=== PATIENT | male | born 1945 | race Caucasian/White ===

== ENCOUNTER → 2017-05-12 | Outpatient (CLI) | payer BC, OTHER ==
[~2017-05-12] MED LIST: ASPI-808 PO; BUPR150T20 PO; CHOL100045 PO; DOXE50CA3 PO; GABA800T2 PO; HYDR-3812 PO; LISI-552 PO; MELO15TA39 PO; PANT40TA3 PO; PROP20TA5 PO; RT-ALBUTEROL SULF 2.5 MG/3 ML PRE-MIX VIAL IH ONE; SERT100T8 PO
== END ==
LOC: RT 11:53
PROVIDERS: ATTEND Internal Medicine Critical Care Medicine
DX: R91.8 Other nonspecific abnormal finding of lung field (principal); R05 Cough; E66.9 Obesity, unspecified; Z72.0 Tobacco use
CPT/HCPCS: 94060; 94726; 94729

== ENCOUNTER → 2017-05-31 | Outpatient (CLI) | payer BC, MEDICARE ==
[~2017-05-31] MED LIST changes: +ATOR80TA76 PO; +DICY20TA10 PO; +GABA-488 PO; +GADOBUTROL 10 MMOL/10 ML (GADAVIST) VIAL IV ONE; +HYDR-3816 PO; +LISI10TA2 PO; +RT-ALBUINH IH; -RT-ALBUTEROL SULF 2.5 MG/3 ML PRE-MIX VIAL IH ONE
--- NOTE | 2017-05-31 19:49 | Diagnostic Imaging Report ---
PROCEDURE: MR imaging of the brain with and without contrast. TECHNIQUE: Multiplanar, multisequence MR imaging of the brain was performed with and without contrast. INDICATION: Newly diagnosed lung cancer. Headache. 9 mL of Gadavist is administered intravenously. FINDINGS: There is no diffusion restriction to suggest an acute infarct or other diffusion abnormality. There is an area of focus with susceptibility artifact seen measuring 5 mm, noted in the left basal ganglia area with central bright T2 and low T1 signal. This could relate to an old focal hemorrhage. No enhancing component is seen to suggest a metastatic nodule. No mass or edema is seen in the brain. There is no hydrocephalus. No extra-axial fluid collection or mass. The central vascular flow voids appear grossly unremarkable. The internal auditory canals and inner ear structures appear unremarkable. The pituitary gland is normal in size. No hypothalamic or pineal region mass. IMPRESSION: No evidence of metastatic disease. Dictated by: Dictated on workstation # [id number]
== END ==
LOC: RAD 14:45
PROVIDERS: ATTEND Internal Medicine Hematology & Oncology
DX: C34.92 Malignant neoplasm of unspecified part of left bronchus or lung (principal); R51 Headache
CPT/HCPCS: 70553

== ENCOUNTER 2017-06-01 05:38 | Outpatient (CLI) | payer BC ==
[~2017-06-01] VITALS: Ht 177.8 cm; Wt 93.9 kg
[~2017-06-01 05:38] MED LIST changes: -ATOR80TA76 PO; -DICY20TA10 PO; -GABA-488 PO; -GADOBUTROL 10 MMOL/10 ML (GADAVIST) VIAL IV ONE; -HYDR-3816 PO; -LISI10TA2 PO; -RT-ALBUINH IH
[2017-06-01] MEDS ORDERED: ATOR80TA76 PO (12:16)
[2017-06-01] MEDS ORDERED: DICY20TA10 PO (12:16)
[2017-06-01] MEDS ORDERED: GABA-488 PO (12:16)
[2017-06-01] MEDS ORDERED: LISI10TA2 PO (12:16)
[2017-06-01] MEDS ORDERED: RT-ALBUINH IH (12:17)
[2017-06-03] MEDS ORDERED: HYDR-3816 PO (12:06)
--- NOTE | 2017-06-03 15:26 | OPERATIVE REPORT ---
DATE OF SERVICE: 06/01/2017 ATTENDING PRIMARY CARE PHYSICIAN: Prasanth Suárez DO. PREOPERATIVE DIAGNOSIS: Right lung adenocarcinoma. POSTOPERATIVE DIAGNOSIS: Right lung adenocarcinoma. PROCEDURE: Placement of left subclavian Groshong implantable catheter under fluoroscopy. SURGEON: Yayo Reyes MD. UNIT TENDER: Kedar Corea APRN. ANESTHESIA: Monitored anesthesia care. ESTIMATED BLOOD LOSS: Minimal. FINDINGS: Catheter tip at superior vena cava - right atrial junction. DISPOSITION: The patient tolerated the procedure well. INDICATIONS: The patient is a 71-year-old male who we have seen before in the past for reflux esophagitis as well as diverticulosis. Approximately one month ago, on routine x-ray at the [facility] where he follows up, a mass was identified. He was referred to Dr. Messina where a bronchoscopy was performed. Washings were done and found to be adenocarcinoma of the lung. A PET-CT scan was also performed, which did show the right lung mass as well as several lymph nodes in the mediastinum, which were contralateral consistent with stage IV disease. He has been seen by oncology for the recommendation for chemotherapy. DESCRIPTION OF PROCEDURE: The patient was brought to the operating room, laid supine on the table. After adequate IV pain and sedative medications and monitored anesthesia care, the neck and chest were prepped and draped in a standard surgical fashion. 0.5% Marcaine with epinephrine was then used to anesthetize the overlying skin in the left subclavian region. The subclavian vein was then cannulated with drawing of venous blood. The guidewire was then inserted under fluoroscopy. The cannulated needle removed and a skin incision made using a 15 blade. The dilator and sheath were then introduced. The guidewire and the dilator were then removed and the Groshong implantable catheter was placed until the tip of the catheter was at the superior vena cava - right atrial junction. The sheath was then removed. The inner wire within the catheter was then removed and the catheter cut down to length and the port placed onto the catheter. The skin incision was extended laterally and the subcutaneous reservoir created between the subcutaneous fat and the anterior pectoralis fascia. This was done using a blunt dissection as well as electrocautery. The port was then placed into the chest reservoir and sutured to the anterior pectoralis fascia using 3-0 Vicryl interrupted sutures. The subcutaneous tissue was then reapproximated using 3-0 Vicryl interrupted sutures. Skin was closed using 4-0 Monocryl running subcuticular suture. The port was accessed with a non-coring Jaramillo needle and venous blood drawn out and heparinized saline pushed in without any resistance. The skin incision was then covered with Dermabond. The patient tolerated the procedure well. We will get a post-procedure chest x-ray and once placement was confirmed, the port may be accessed and used at any time. Job ID: [id number] DocumentID: [id number] Dictated Date: 06/03/2017 12:02:06 Product Examiner Date: 06/03/2017 15:25:37 Dictated By: YAYO REYES MD MTDD
== END 2017-06-01 12:25 ==
LOC: PREOP 05:38
PROVIDERS: ATTEND Surgery
DX: Z01.818 Encounter for other preprocedural examination (principal); C34.90 Malignant neoplasm of unspecified part of unspecified bronchus or lung

== ENCOUNTER → 2017-06-03 | Day surgery (SDC) | payer BC ==
[~2017-06-03] VITALS: Ht 177.8 cm; Wt 93.9 kg
[~2017-06-03] MED LIST changes: +0.9% SODIUM CHLORIDE PF INJ 20 ML VIAL ONE; +ACETAMINOPHEN 325 MG TABLET/CAPLET (TYLENOL) PO PRN; +ATOR80TA76 PO; +CATHETER FLUSH 10 ML SYR IV PRN; +DICY20TA10 PO; +FAMOTIDINE 20MG/2ML IV (PEPCID) IV ONE; +GABA-488 PO; +HEParin (CENTRAL IV FLUSH) 500 UNIT/5 ML SYR ONE; +HYDR-3816 PO; +HYDROcodone/APAP 5 MG/325 MG (LORTAB) TAB PO ONE; +LACTATED RINGERS 1,000 ML IV PRN; +LIDOCAINE PF 2% 5 ML (XYLOCAINE) VIAL ONE; +LIDOCAINE/EPI 1%-1:200,000 (XYLOCAINE) 10 ML VIAL ONE; +LISI10TA2 PO; +MIDAZOLAM 2 MG/2 ML (VERSED) VIAL ONE; +ONDANSETRON 4 MG/2 ML (SDV) Z0FRAN IVP PRN; +RT-ALBUINH IH; +ceFAZolin 1 GM/NS 50 ML IVPB IV ONE; +ceFAZolin INJECTION 1,000 MG in NS (IVPB) 50 ML IV ONE; +morphine INJ 10 MG/ML 1ML (SYR OR VIAL) IVP PRN; +proPOfol 200 MG/20 ML (DIPRIVAN) VIAL IV ONE
--- OUTSIDE RECORDS SUMMARY | 2017-06-03 08:08 | XMS REPORT | Continuity of Care Document ---
Author Author [employer] Organization [facility] Address Unknown Phone Unavailable Care Team Providers Care Webbing Weaver Name Role Phone [employer] Unavailable Unavailable Problems Medications Allergies, Adverse Reactions, Alerts Immunizations Results Vital Signs Encounters Procedures Plan of Care Social History Assessment and Plan Family History Value Date Source Advance Directives Order Name Results Value Date Source
--- OUTSIDE RECORDS SUMMARY | 2017-06-03 08:08 | XMS REPORT | Encounter Summary ---
Author Author [facility] Organization [facility] Address Unknown Phone Unavailable Care Team Providers Care Rn Complex Care Name Role Phone PCP Unavailable Reason for Visit * Reason Comments Care Coordination Encounter Details Date Type Department Care Team Description 06/02/2017 Telephone [facility] Galileo Russell MD Care Coordination [facility] - OP Exam [address] [address] [place], [place] [phone] [phone] Social History Tobacco Use Types Packs/Day Years Used Date Current Every Day Smoker Cigarettes 1 55 Smokeless Tobacco: Never Used Alcohol Use Drinks/Week oz/Week Comments No Sex Assigned at Date Recorded Not on file as of this encounter Functional Status Functional Status Response Date of Assessment Does the patient have a hearing impairment: Yes 05/25/2017 Does the patient have a visual impairment: Yes 05/25/2017 Does the patient have impaired ambulation: No 05/25/2017 Does the patient have an activity of daily living No 05/25/2017 (ADL) impairment: Does the patient have an instrumental activity of No 05/25/2017 daily living (IADL) impairment: Cognitive Status Response Date of Assessment Does the patient have a cognitive impairment: No 05/25/2017 as of this encounter Miscellaneous Notes * Telephone Encounter - Joann Arias, RN - 06/02/2017 12:51 PM WASH BARREL LEADER Patients called and states that they had a f/u with Dr. Dougherty at [facility] in [facility]. She stated that Dr Dougherty received Dr. Russell's consult note that he sent and Dr. Dougherty agrees with Dr. Russell. Being that it is winter time and they live so far away, they have decided to take treatment Closer to home, but still would like to follow up with Dr. Russell. Informed her that is fine as Dr. Russell stated. She will call and schedule follow up after chemotherapy and radiation has been completed. Will inform Dr. Russell. in this encounter Plan of Treatment Not on fileas of this encounter Visit Diagnoses Not on filein this encounter
--- OUTSIDE RECORDS SUMMARY | 2017-06-03 08:08 | XMS REPORT | Clinical Summary ---
Author Author [facility] Organization [facility] Address Unknown Phone Unavailable Care Team Providers Care Box Packer Name Role Phone PCP Unavailable Source Comments Some departments are not documenting in the electronic medical record. If you do not see the information that you expected, contact Release of Information in the Health Information Management department at [phone] for further assistance in locating additional records.[facility] Allergies Active Allergy Reactions Severity Noted Date Comments Meperidine HYPOTENSION High 05/25/2017 Current Medications Prescription Sig. Disp. Refills Start End Date Status Date atorvastatin (LIPITOR) 80 Take 80 mg by mouth at Active mg tablet bedtime daily. sertraline (ZOLOFT) 100 Take 100 mg by mouth Active mg tablet daily. aspirin 325 mg tablet Take 325 mg by mouth Active daily. Take with food. propranolol (INDERAL) 20 Take 20 mg by mouth Active mg tablet daily. cholecalciferol (VITAMIN Take 1,000 Units by mouth Active D-3) 1,000 units tablet daily. lisinopril (PRINIVIL; Take 10 mg by mouth Active ZESTRIL) 10 [address] daily. pantoprazole [address] Take 40 mg by mouth Active (PROTONIX) 40 mg tablet daily. gabapentin (NEURONTIN) Take 300 mg by mouth at Active 300 mg capsule bedtime daily. dicyclomine (BENTYL) 20 Take 20 mg by mouth twice Active mg tablet daily. albuterol (PROAIR HFA) 90 Inhale 2 puffs by mouth Active mcg/actuation inhaler into the lungs four times daily as needed for Wheezing or Shortness of Breath. Shake well before use. meloxicam (MOBIC) 15 mg Take 15 mg by mouth daily Active tablet as needed for Pain. 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 He reports that he was in seeing a nurse practitioner. Commented that he lost about 40 pounds of weight since the beginning of the year. He is also been prone to some chronic diarrhea for a number of years but he has had evaluations have shown diverticulosis and it sounds like a little bit more than a year ago he had a polyp removed but it is since been repeated and did not show any abnormalities. He is also had CT scan of the abdomen and pelvis done March 11, 2017 at [facility] due to some diarrhea and abdominal pain that showed some renal cysts, diverticuli but no diverticulitis but some possible changes suggesting of an ileus. I will note he had an outside chest x-ray done September 18, 2016 that showed elevation of the left hemidiaphragm which is long-standing but no active infiltrates. He ultimately had a CT scan of the chest April 14, 2017 done locally that showed a 1.8 x 1.4 by 1.0 cm spiculated right upper lobe mass and there was an additional smaller nodule the largest which was 1.2 x 1.0 x 0.6 cm with emphysematous changes but also some mediastinal and right hilar lymph nodes. He went on to have a PET scan May 04 2017 at [facility] which showed the right upper lobe pulmonary nodule with an SUV of 3.5 and another more inferiorly located nodule had an SUV 5. There were multiple hypermetabolic lymph nodes including right paratracheal with an SUV of 9 upper right paraesophageal lymph node infracarinal lymph node with an SUV of 11.5 and a right hilar node with an SUV of 11.4 but no obvious distant disease. He went on to have a bronchoscopy and EBUS done at [facility] May 05 2017 and no endobronchial lesions were noted in station 7 and 4L were sampled and he also had BAL and brushing of the left lower lobe. The pathology returned showing malignant cells from both the level 7 and 4L lymph node which favored adenocarcinoma as the cells were TTF-1 positive but Naprosyn negative. BALs from the left lower lobe were negative. We did discuss that the nodules were in the right upper lobe but we reviewed the scans and I suspect they were to peripheral to get a diagnosis and it may have been a chronic left hemidiaphragm elevation with the left lower lobe appear abnormal. Aside from the weight loss though he does not have any acute pulmonary changes. 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 L ast Assessment & Plan: 1. Diagnosis of non-small cell lung cancer favor adenocarcinoma with biopsy-proven mediastinal adenopathy and again I believe it is contralateral making it in N3 disease - likely stage IIIB. Likewise his nodules are small but there are several in the same lobe which would make it a T3 primary. He does not appear to have any metastatic disease which is favorable and I did advise he should have an MRI of the brain as initial staging. 2. His biggest symptom is weight loss. It is hard for me to imagine that this small volume of tumor is causing that. It is somewhat of a concerning symptom but regardless he will require treatment. 3. Tobacco abuse. Even though he has a diagnosis I have told him that patients with even more advanced disease do have more favorable outcomes with therapy if they are able to stop. He has been able to do before so is going to work on that. 4. He does have long-standing diarrhea of uncertain etiology. It sounds like he has had extensive workups including colonoscopies and imaging has not shown any other disease to account for that. That may have more to do with his weight loss and the true tumor but again it would not change current management. 5. 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 6. From a treatment standpoint given that this is stage III disease specifically likely stage IIIb we would recommend definitive chemoradiotherapy. I have talked to him a little bit about the logistics and side effects and I would typically use a once weekly dose of Taxol carboplatin concurrently. We have discussed the side effects and it would have to be monitored with his neuropathy but I think it would probably not be any greater risk than using a cisplatin based combination. Ultimately we have discussed that often consolidation chemotherapy was administered without a lot of medical evidence. More recently though immunotherapy specifically durvalumab per the Ophelia trial of shown significant improvement in progression free survival. Whether this translates and overall survival remains to be seen but the progression free survival was significant enough to be optimistic and is generally well tolerated therapy. We have discussed those logistics and duration of therapy for a year and possible autoimmune side effects but I would certainly consider that. He and his family have to decide where they want to have their treatment and they do have local opinion scheduled later this week. We have discussed overall prognosis and the fact that patients with stage III disease can have longer term disease-free survival after this type of therapy but historically is not in excess of 20% but clearly we can prolong therapy and delay progression as well. There is also reason to be optimistic based on immunomodulatory data. Asked appropriate questions and I am happy to help coordinate therapy. I did not request molecular testing because I do not know a changes therapy at this stage and if he does develop progression elsewhere we would probably have to obtain more tissue. Encounters Date Type Specialty Care Team Description 06/02/2017 Telephone Oncology Galileo Russell MD Care Coordination 05/28/2017 Ancillary Radiology Outpatient, Radiologist Diagnosis unknown Orders 05/25/2017 Office Visit Oncology Galileo Russell MD 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) 05/25/2017 Documentation Oncology Kassi Sheets 05/24/2017 Ancillary Radiology Outpatient, Radiologist Diagnosis unknown Orders 05/24/2017 Ancillary Radiology Outpatient, Radiologist Diagnosis unknown Orders 05/19/2017 Ancillary Radiology Outpatient, Radiologist Diagnosis unknown Orders 05/19/2017 Documentation Oncology Beverley Doyle 05/19/2017 Telephone Oncology Galileo Russell MD Navigation Assessment 05/05/2017 Hospital Radiology Encounter 05/04/2017 Hospital Radiology Encounter 04/14/2017 Hospital Radiology Encounter 04/14/2017 Hospital Radiology Encounter 03/17/2017 Hospital Radiology Encounter 03/17/2017 Hospital Radiology Encounter 03/11/2017 Hospital Radiology Encounter from Last 3 Months Family History Medical History Relation Name Comments Coronary Artery Disease Father Heart Disease Father High Cholesterol Father Hyperlipidemia Father Hypertension Father Cancer Mother Hypertension Mother Cancer-Colon Sister Stroke Sister Relation Name Status Comments Father Mother Sister Social History Tobacco Use Types Packs/Day Years Used Date Current Every Day Smoker Cigarettes 1 55 Smokeless Tobacco: Never Used Tobacco Cessation: Ready to Quit: No Alcohol Use Drinks/Week oz/Week Comments No Sex Assigned at Date Recorded Not on file Last Filed Vital Signs Vital Sign Reading Time Taken Blood Pressure 163/70 05/25/2017 3:01 PM GRAIN ELEVATOR WORKER Pulse 49 05/25/2017 3:01 PM GRAIN ELEVATOR WORKER Temperature 36.8 C (98.3 F) 05/25/2017 3:01 PM GRAIN ELEVATOR WORKER Respiratory Rate 16 05/25/2017 3:01 PM GRAIN ELEVATOR WORKER Oxygen Saturation 99% 05/25/2017 3:01 PM GRAIN ELEVATOR WORKER Inhaled Oxygen - - Concentration Weight 95.3 kg (210 lb) 05/25/2017 3:01 PM GRAIN ELEVATOR WORKER Height 176.5 cm (5' 9.5") 05/25/2017 3:01 PM GRAIN ELEVATOR WORKER Body Mass Index 30.57 05/25/2017 3:01 PM GRAIN ELEVATOR WORKER Plan of Treatment Health Maintenance Due Date Last Done Comments HEPATITIS C SCREENING 1945 PHYSICAL (COMPREHENSIVE) 1953 EXAM PERTUSSIS VACCINE 1957 TETANUS VACCINE 11/16/1963 COLORECTAL CANCER 1996 SCREENING SHINGLES VACCINE 2006 ABDOMINAL AORTIC ANEURYSM 11/16/2011 SCREENING PREVNAR/PNEUMOVAX (#1) 11/16/2011 INFLUENZA VACCINE 01/26/2017 Results * GENERAL RAD CHEST EXTERNAL IMAGING (05/05/2017) Only the most recent of 2 results within the time period is included. Narrative This order has been auto finalized and does not contain a result. * NM PET/CT EXTERNAL IMAGING (05/04/2017) Narrative This order has been auto finalized and does not contain a result. * US THYROID EXTERNAL IMAGING (04/14/2017 12:15 AM) Narrative This order has been auto finalized and does not contain a result. * CT CHEST EXTERNAL IMAGING (04/14/2017) Narrative This order has been auto finalized and does not contain a result. * US CAROTID EXTERNAL IMAGING (03/17/2017 12:15 AM) Narrative This order has been auto finalized and does not contain a result. * CT ABD/PEL EXTERNAL IMAGING (03/11/2017) Narrative This order has been auto finalized and does not contain a result. from Last 3 Months
--- OUTSIDE RECORDS SUMMARY | 2017-06-03 08:08 | XMS REPORT | Encounter Summary ---
Author Author [facility] Organization [facility] Address Unknown Phone Unavailable Care Team Providers Care Executive Director Of Marketing Name Role Phone PCP Unavailable Encounter Details Date Type Department Care Team Description 05/25/2017 Documentation [facility] Kassi Sheets [facility] Center - OP Exam [address] [id number] Social History Tobacco Use Types Packs/Day Years [...] impairment: No 05/25/2017 as of this encounter Progress Notes * Kassi Sheets - 05/25/2017 4:24 PM BLIND HOOKER DIANE referred by [facility] for support/resources. Pt is 71yo w/ lung cancer here w/ and 2 adult children. Pt lives near [facility] and considering treatment at , wants to know resources for lodging etc. SW discussed [facility] [place] and provided info. w/ insurance questions as well, Pt only signed up for Medicare Part A and is covered on her BCBS plan through her work. They plan to talk to SS about part B, SW encouraged this, Pt may pay penalties for not signing up earlier but may be worth it still if they are concerned about coverage. Discussed talking to [facility] if they do elect treatment here they will do benefits check and give estimate. 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 SW discussed talking to kids about Dx and offered resources. 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 SW offered support. Will cont to follow. in this encounter Plan of Treatment Not on fileas of this encounter Visit Diagnoses Not on filein this encounter
--- OUTSIDE RECORDS SUMMARY | 2017-06-03 08:08 | XMS REPORT | Encounter Summary ---
Author Author [facility] Organization [facility] Address Unknown Phone Unavailable Care Team Providers Care Station Installation Supervisor Name Role Phone PCP Unavailable Encounter Details Date Type Department Care Team Description 05/28/2017 Ancillary Rad Outpatient, Radiologist Diagnosis unknown Orders [address] [place] [address] Social History Tobacco Use Types Packs/Day Years [...] impairment: No 05/25/2017 as of this encounter Plan of Treatment Not on fileas of this encounter Results * US THYROID EXTERNAL IMAGING (04/14/2017 12:15 AM) Narrative This order has been auto finalized and does not contain a result. * US CAROTID EXTERNAL IMAGING (03/17/2017 12:15 AM) Narrative This order has been auto finalized and does not contain a result. in this encounter Visit Diagnoses Diagnosis Diagnosis unknown Other unknown and unspecified cause of morbidity or mortality in this encounter
--- OUTSIDE RECORDS SUMMARY | 2017-06-03 08:09 | XMS REPORT | Encounter Summary ---
Author Author [facility] Organization [facility] Address Unknown Phone Unavailable Care Team Providers Care Pipe Bowl Paint Trimmer Name Role Phone PCP Unavailable Encounter Details Date Type Department Care Team Description 04/14/[address] [facility] Hospital Radiology [address] [place] [address] Social History Tobacco Use Types Packs/Day Years Used Date Never Assessed Sex Assigned at Date Recorded Not on file as of this encounter Plan of Treatment Not on fileas of this encounter Results * US THYROID EXTERNAL IMAGING (04/14/2017 12:15 AM) Narrative This order has been auto finalized and does not contain a result. in this encounter Visit Diagnoses Diagnosis Diagnosis unknown Other unknown and unspecified cause of morbidity or mortality in this encounter
--- OUTSIDE RECORDS SUMMARY | 2017-06-03 08:09 | XMS REPORT | Encounter Summary ---
Author Author [facility] Organization [facility] Address Unknown Phone Unavailable Care Team Providers Care Student Ministries Director Name Role Phone PCP Unavailable Encounter Details Date Type Department Care Team Description 03/17/2017 Hospital [facility] Radiology [address] [place] [address] Social History Tobacco Use Types Packs/Day Years Used Date Never Assessed Sex Assigned at Date Recorded Not on file as of this encounter Plan of Treatment Not on fileas of this encounter Results * GENERAL RAD CHEST EXTERNAL IMAGING (03/17/2017) Narrative This order has been auto finalized and does not contain a result. in this encounter Visit Diagnoses Diagnosis Diagnosis unknown Other unknown and unspecified cause of morbidity or mortality in this encounter
--- OUTSIDE RECORDS SUMMARY | 2017-06-03 08:09 | XMS REPORT | Encounter Summary ---
Author Author [facility] Organization [facility] Address Unknown Phone Unavailable Care Team Providers Care Fiber Optics Engineer Name Role Phone PCP Unavailable Encounter Details Date Type Department Care Team Description 05/19/2017 Ancillary Rad Outpatient, Radiologist Diagnosis unknown Orders [address] [place] [address] Social History Tobacco Use Types Packs/Day Years Used Date Never Assessed Sex Assigned at Date Recorded Not on file as of this encounter Plan of Treatment Not on fileas of this encounter Results * GENERAL RAD CHEST EXTERNAL IMAGING (05/05/2017) Narrative This order has been auto finalized and does not contain a result. * NM PET/CT EXTERNAL IMAGING (05/04/2017) Narrative This order has been auto finalized and does not contain a result. in this encounter Visit Diagnoses Diagnosis Diagnosis unknown Other unknown and unspecified cause of morbidity or mortality in this encounter
--- OUTSIDE RECORDS SUMMARY | 2017-06-03 08:09 | XMS REPORT | Encounter Summary ---
Author Author [facility] Organization [facility] Address Unknown Phone Unavailable Care Team Providers Care Teamcenter Consultant Name Role Phone PCP Unavailable Encounter Details Date Type Department Care Team Description 05/05/[address] [facility] Hospital Radiology [address] [place] [address] Social History Tobacco Use Types Packs/Day Years [...]
--- OUTSIDE RECORDS SUMMARY | 2017-06-03 08:09 | XMS REPORT | Encounter Summary ---
Author Author [facility] Organization [facility] Address Unknown Phone Unavailable Care Team Providers Care Optometric Aide Name Role Phone PCP Unavailable Reason for Visit * Reason Comments Heme/Onc Care * Consult, Test & Treat (Routine) Status Reason Specialty Diagnoses / Referred By Referred To Procedures Contact Contact New Request Oncology Diagnoses Mack Messina, Galileo Russell MD [place] [address] cancer second 1 [place], [place] [address] [address] [address] [place], [place] Phone: [employer] [address] [place] OFFICE Phone: CONSULTATION,LEV [phone] EL V Fax: NEW PATIENT [phone] Encounter Details Date Type Department Care Team Description 05/25/2017 Office Visit [facility] Galileo Russell MD Primary adenocarcinoma of Cancer Center - OP Exam [address] upper lobe of right lung [address] [facility] [place] [address] ([facility]) [place], [place] [phone] Social History Tobacco Use Types Packs/Day Years Used Date Current Every Day Smoker Cigarettes 1 55 Smokeless Tobacco: Never Used Tobacco Cessation: Ready to Quit: No Alcohol Use Drinks/Week oz/Week Comments No Sex Assigned at Date Recorded Not on file as of this encounter Last Filed Vital Signs Vital Sign Reading Time Taken Blood Pressure 163/70 05/25/2017 3:01 PM TOP LIFT CUTTER Pulse 49 05/25/2017 3:01 PM TOP LIFT CUTTER Temperature 36.8 C (98.3 F) 05/25/2017 3:01 PM TOP LIFT CUTTER Respiratory Rate 16 05/25/2017 3:01 PM TOP LIFT CUTTER Oxygen Saturation 99% 05/25/2017 3:01 PM TOP LIFT CUTTER Inhaled Oxygen - - Concentration Weight 95.3 kg (210 lb) 05/25/2017 3:01 PM TOP LIFT CUTTER Height 176.5 cm (5' 9.5") 05/25/2017 3:01 PM TOP LIFT CUTTER Body Mass Index 30.57 05/25/2017 3:01 PM TOP LIFT CUTTER in this encounter Functional Status Functional Status Response [...] as of this encounter Progress Notes * Galileo Russell MD - 05/25/2017 3:00 PM TOP LIFT CUTTER Formatting of this note may be different from the original. Date of Service: 05/25/2017 Subjective: Reason for Visit: Heme/Onc Care Misbah Gregg is a 71 y.o. male. 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) Staging form: Lung, AJCC 7th Edition - Clinical stage from 05/25/2017: Stage IIIB (T3, N3, M0) - Signed by Galileo Russell MD on 05/25/2017 History of Present Illness Problem Primary Adenocarcinoma of Upper Lobe of Right Lung (Hcc) Here for recent diagnosis of non-small cell [...] and pelvis done March 11, 2017 at [facility] due to some diarrhea and abdominal pain [...] a PET scan May 04 2017 at [facility] which showed the right upper lobe pulmonary [...] have a bronchoscopy and EBUS done at [facility] May 05 2017 and no endobronchial lesions [...] did talk about trying to stop again. Review of Systems Constitutional: Positive for activity change, appetite change, diaphoresis ( Nighttime), fatigue and unexpected weight change. Respiratory: Positive for apnea, cough and wheezing. Gastrointestinal: Positive for diarrhea. Genitourinary: Positive for urgency. Musculoskeletal: Positive for back pain and gait problem. Skin: Positive for color change (Legs and feet) and rash (Legs). Hematological: Bruises/bleeds easily. Psychiatric/Behavioral: Positive for decreased concentration and sleep disturbance. All other systems reviewed and are negative. Past Medical History: Diagnosis Date Back pain Bleeding disorder (HCC) COPD (chronic obstructive pulmonary disease) (HCC) Hearing reduced Heart disease Hypertension Peripheral neuropathy (HCC) Stomach disorder Vision decreased Past Surgical History: Procedure Laterality Date COLONOSCOPY CORONARY ARTERY BYPASS GRAFT HX CHOLECYSTECTOMY HX HEART CATHETERIZATION LYMPH NODE BIOPSY Family History Problem Relation Age of Onset Cancer Mother 58 Hypertension Mother Heart Disease Father Hypertension Father High Cholesterol Father Coronary Artery Disease Father Hyperlipidemia Father Cancer-Colon Sister 76 Stroke Sister 76 Social History Social History Marital status: Spouse name: N/A Number of children: N/A Years of education: N/A Social History Main Topics Smoking status: Current Every Day Smoker Packs/day: 1.00 Years: 55.00 Types: Cigarettes Smokeless tobacco: Never Used Alcohol use No Drug use: No Sexual activity: Not Asked Other Topics Concern None Social History Narrative None Allergies Allergen Reactions Demerol [Meperidine] HYPOTENSION Objective: albuterol (PROAIR HFA) 90 mcg/actuation inhaler Inhale 2 puffs by mouth into the lungs four times daily as needed for Wheezing or Shortness of Breath. Shake well before use. aspirin 325 mg tablet Take 325 mg by mouth daily. Take with food. atorvastatin (LIPITOR) 80 mg tablet Take 80 mg by mouth at bedtime daily. cholecalciferol (VITAMIN D-3) 1,000 units tablet Take 1,000 Units by mouth daily. dicyclomine (BENTYL) 20 mg tablet Take 20 mg by mouth twice daily. gabapentin (NEURONTIN) 300 mg capsule Take 300 mg by mouth at bedtime daily. HYDROcodone/acetaminophen (NORCO) 5/325 mg tablet Take 1 tablet by mouth every 4 hours as needed for Pain lisinopril (PRINIVIL; ZESTRIL) 10 mg tablet Take 10 mg by mouth daily. meloxicam (MOBIC) 15 mg tablet Take 15 mg by mouth daily as needed for Pain. pantoprazole DR (PROTONIX) 40 mg tablet Take 40 mg by mouth daily. propranolol (INDERAL) 20 mg tablet Take 20 mg by mouth daily. sertraline (ZOLOFT) 100 mg tablet Take 100 mg by mouth daily. Vitals: 05/25/17 1501 BP: 163/70 Pulse: 49 Resp: 16 Temp: 36.8 C (98.3 F) TempSrc: Oral SpO2: 99% Weight: 95.3 kg (210 lb) Height: 176.5 cm (69.5") Body mass index is 30.57 kg/(m^2). Pain Score: Zero Pain Addressed: N/A Patient Evaluated for a Clinical Trial: No treatment clinical trial available for this patient. Eastern Cooperative Oncology Group performance status is 0, Fully active, able to carry on all pre-disease performance without restriction.. Physical Exam Constitutional: He is oriented to person, place, and time. He appears well- developed and well-nourished. No distress. HENT: Head: Normocephalic and atraumatic. Mouth/Throat: Oropharynx is clear and moist. Eyes: Conjunctivae are normal. No scleral icterus. Neck: Neck supple. No thyromegaly present. Cardiovascular: Normal rate, regular rhythm and normal heart sounds. Pulmonary/Chest: Effort normal and breath sounds normal. No respiratory distress. Abdominal: Soft. Bowel sounds are normal. He exhibits no distension and no mass. There is no tenderness. Musculoskeletal: Normal range of motion. He exhibits no edema. Lymphadenopathy: He has no cervical adenopathy. He has no axillary adenopathy. Right: No supraclavicular adenopathy present. Left: No supraclavicular adenopathy present. Neurological: He is alert and oriented to person, place, and time. He displays normal reflexes. No cranial nerve deficit. He exhibits normal muscle tone. Coordination normal. Skin: Skin is warm and dry. Psychiatric: He has a normal mood and affect. Vitals reviewed. No results found for this or any previous visit (from the past 336 hour(s)). 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 Diagnosis of non-small cell lung cancer favor adenocarcinoma with biopsy- proven mediastinal adenopathy and again I believe it [...] recently though immunotherapy specifically durvalumab per the [place] trial of shown significant improvement in progression [...] would probably have to obtain more tissue. 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 Diagnosis of non-small cell lung cancer favor adenocarcinoma with biopsy- proven mediastinal adenopathy and again I believe it [...] recently though immunotherapy specifically durvalumab per the [place] trial of shown significant improvement in progression [...] would probably have to obtain more tissue. 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
--- OUTSIDE RECORDS SUMMARY | 2017-06-03 08:09 | XMS REPORT | Encounter Summary ---
Author Author [facility] Organization [facility] Address Unknown Phone Unavailable Care Team Providers Care Beam Saw Operator Name Role Phone PCP Unavailable Encounter Details Date Type Department Care Team Description 05/24/2017 Ancillary Rad Outpatient, Radiologist Diagnosis unknown Orders [address] [place] [address] Social History Tobacco Use Types Packs/Day Years Used Date Never Assessed Sex Assigned at Date Recorded Not on file as of this encounter Plan of Treatment Not on fileas of this encounter Results * CT CHEST EXTERNAL IMAGING (04/14/2017) Narrative This order has been auto finalized and does not contain a result. * GENERAL RAD CHEST EXTERNAL IMAGING (03/17/2017) Narrative This order has been auto finalized and does not contain a result. in this encounter Visit Diagnoses Diagnosis Diagnosis unknown Other unknown and unspecified cause of morbidity or mortality in this encounter
--- OUTSIDE RECORDS SUMMARY | 2017-06-03 08:09 | XMS REPORT | Encounter Summary ---
Author Author [facility] Organization [facility] Address Unknown Phone Unavailable Care Team Providers Care Commercial Driver Name Role Phone PCP Unavailable Encounter Details Date Type Department Care Team Description 03/11/2017 Hospital [facility] Radiology [address] [place] [address] Social History Tobacco Use Types Packs/Day Years Used Date Never Assessed Sex Assigned at Date Recorded Not on file as of this encounter Plan of Treatment Not on fileas of this encounter Results * CT ABD/PEL EXTERNAL IMAGING (03/11/2017) Narrative This order has been auto finalized and does not contain a result. in this encounter Visit Diagnoses Diagnosis Diagnosis unknown Other unknown and unspecified cause of morbidity or mortality in this encounter
--- OUTSIDE RECORDS SUMMARY | 2017-06-03 08:09 | XMS REPORT | Encounter Summary ---
Author Author [facility] Organization [facility] Address Unknown Phone Unavailable Care Team Providers Care Concrete Engineering Technician Name Role Phone PCP Unavailable Reason for Visit * Reason Comments Navigation Assessment Encounter Details Date Type Department Care Team Description 05/19/2017 Telephone [facility] Galileo Russell MD Navigation Assessment [facility] - [facility] Exam [address] [place] [address] [place] [address] [phone] Social History Tobacco Use Types Packs/Day Years Used Date Never Assessed Sex Assigned at Date Recorded Not on file as of this encounter Miscellaneous Notes * Telephone Encounter - Lea Bower RN - 05/19/2017 11:20 AM HPLC CHEMIST Navigation Intake Assessment Document Patient Name: Misbah Gregg : 1945 Insurance: [place], [place] Appointment Info: to see Dr Russell on 05/25/17 Diagnosis & Reason for Visit: Lung cancer Physician Info: Referring Physician: Self-referred Contact Name & Number: Surgeon: Medical Oncologist: to see Dr Dougherty in [place], [place] Radiation Oncologist: PCP: Dr Prasanth Suárez, [place], [place] Other: Dr Mack Messina, [facility] Location of Films: PACS, all images and discs requested. Pt has disc from [facility] and will bring it. Location of Pathology: [place], [place] History of Present Illness: Pt had outside workup. 03/11/17 - CT abd pelvis in [place], [place], at [facility] 03/17/17 - CXR 04/14/17 - CT chest at [facility] in [place] 05/04/17 - PET at [facility] in [place], [place] 05/05/17 - EBUS biopsy, LN Path: malignant cells, NSC, favor adeno CA inquired about additional mutation studies - per [facility] pathology, not enough cells for testing. Pt requests opinion at [facility] He has an appt on 05/27/17 to see Med Onc, Dr Dougherty in [place] Prior Treatment (XRT, Surgery, Chemotherapy): None Comments: Spoke to patient's , Areli. They will be driving in from [place], [place] for appt here. Appt guide sent NEEDS Assessment: Genetic Counseling: Not Applicable Nutrition: No needs identified Social Work/Financial: No need identified and Patient provided information on available services Spiritual & Emotional: Emotional support provided Physical: No needs identified Communication: No needs identified Oncofertility - Females age 40 and under; Males age 50 and under : Not applicable in this encounter Plan of Treatment Not on fileas of this encounter Visit Diagnoses Not on filein this encounter
--- OUTSIDE RECORDS SUMMARY | 2017-06-03 08:09 | XMS REPORT | Encounter Summary ---
Author Author [facility] Organization [facility] Address Unknown Phone Unavailable Care Team Providers Care Ditch Digger Name Role Phone PCP Unavailable Encounter Details Date Type Department Care Team Description 05/19/2017 Documentation [facility] Beverley Doyle [facility] Center - WW Exam [address] [place] [address] Social History Tobacco Use Types Packs/Day Years Used Date Never Assessed Sex Assigned at Date Recorded Not on file as of this encounter Progress Notes * Beverley Doyle - 05/19/2017 1:13 PM MAINTENANCE WORKER Disc of images including 04-14-17 CT chest and 03-17-17 [facility] Disc of images delivered to radiology to be loaded into PACS. in this encounter Plan of Treatment Not on fileas of this encounter Visit Diagnoses Not on filein this encounter
--- OUTSIDE RECORDS SUMMARY | 2017-06-03 08:09 | XMS REPORT | Encounter Summary ---
Author Author [facility] Organization [facility] Address Unknown Phone Unavailable Care Team Providers Care Wild Oyster Harvester Name Role Phone PCP Unavailable Encounter Details Date Type Department Care Team Description 05/04/2017 Hospital [facility] Radiology [address] [place] [address] Social History Tobacco Use Types Packs/Day Years Used Date Never Assessed Sex Assigned at Date Recorded Not on file as of this encounter Plan of Treatment Not on fileas of this encounter Results * NM PET/CT EXTERNAL IMAGING (05/04/2017) Narrative This order has been auto finalized and does not contain a result. in this encounter Visit Diagnoses Diagnosis Diagnosis unknown Other unknown and unspecified cause of morbidity or mortality in this encounter
--- OUTSIDE RECORDS SUMMARY | 2017-06-03 08:09 | XMS REPORT | Encounter Summary ---
Author Author [facility] Organization [facility] Address Unknown Phone Unavailable Care Team Providers Care Medical Radiation Tech Name Role Phone PCP Unavailable Encounter Details Date Type Department Care Team Description 04/14/2017 Hospital [facility] Radiology [address] [place] [address] Social History Tobacco Use Types Packs/Day Years [...]
--- OUTSIDE RECORDS SUMMARY | 2017-06-03 08:09 | XMS REPORT | Encounter Summary ---
Author Author [facility] Organization [facility] Address Unknown Phone Unavailable Care Team Providers Care Athletic Director Name Role Phone PCP Unavailable Encounter Details Date Type Department Care Team Description 03/17/2017 Hospital [facility] Radiology [address] [place] [address] Social History Tobacco Use Types Packs/Day Years Used Date Never Assessed Sex Assigned at Date Recorded Not on file as of this encounter Plan of Treatment Not on fileas of this encounter Results * US CAROTID EXTERNAL IMAGING (03/17/2017 12:15 AM) Narrative This order has been auto finalized and does not contain a result. in this encounter Visit Diagnoses Diagnosis Diagnosis unknown Other unknown and unspecified cause of morbidity or mortality in this encounter
--- OUTSIDE RECORDS SUMMARY | 2017-06-03 08:09 | XMS REPORT | Encounter Summary ---
Author Author [facility] Organization [facility] Address Unknown Phone Unavailable Care Team Providers Care City Solicitor Name Role Phone PCP Unavailable Encounter Details Date Type Department Care Team Description 05/24/2017 Ancillary Rad Outpatient, Radiologist Diagnosis unknown Orders [address] [place] [address] Social History Tobacco Use Types Packs/Day Years Used Date Never Assessed Sex Assigned at Date Recorded Not on file as of this encounter Plan of Treatment Not on fileas of this encounter Results * CT ABD/PEL EXTERNAL IMAGING (03/11/2017) Narrative This order has been auto finalized and does not contain a result. * GENERAL RAD CHEST EXTERNAL IMAGING (09/18/2016) Narrative This order has been auto finalized and does not contain a result. in this encounter Visit Diagnoses Diagnosis Diagnosis unknown Other unknown and unspecified cause of morbidity or mortality in this encounter
[2017-06-03 08:41] VITALS: BP 105/70
--- NOTE | 2017-06-03 09:19 | Progress Note-Pre Operative ---
Pre-Operative Progress Note H&P Reviewed The H&P was reviewed, patient examined and no changes noted. Date Seen by Provider: Jun 03, 2017 Time Seen by Provider: 09:00 Date H&P Reviewed: Jun 03, 2017 Time H&P Reviewed: 09:00 Pre-Operative Diagnosis: lung cancer YAYO DAMIAN MD Jun 03, 2017 9:19 am
--- NOTE | 2017-06-03 12:00 | Progress Note-Post Operative ---
Post-Operative Progess Note Surgeon (s)/Terminal Computer Operator (s) Surgeon YAYO DAMIAN MD Terminal Computer Operator: abby lazaro METAL CLEANER Pre-Operative Diagnosis lung cancer Post-Operative Diagnosis same Procedure & Operative Findings Date of Procedure 06/03/17 Procedure Performed/Findings placement left subclavian groshong implantable catheter under flouroscopy. Anesthesia Type MAC with local Estimated Blood Loss Estimated blood loss (mL): minimal Specimens/Packing Specimens Removed none YAYO DAMIAN MD Jun 03, 2017 12:00
--- NOTE | 2017-06-03 12:07 | Discharge Inst-Surgical ---
D/C Lap Instructions-RICKIE New, Converted, or Re-Newed RX: RX on Chart Follow Up PRN Activity as tolerated Regular Diet Symptoms to Report: Fever over 101 degree F, Nausea/Vomiting Infection Signs and Symptoms to report: Increased redness, Foul odor of wound, Increased drainage Bathing instructions: May shower Operative Area Clean/Dry; Keep incision clean/dry If any problems/questions: Contact your physician or go to Emergency Room YAYO DAMIAN MD Jun 03, 2017 12:07
[2017-06-03 12:30] VITALS: BP 120/75
--- NOTE | 2017-06-03 12:48 | Diagnostic Imaging Report ---
EXAM: Portable upright radiograph of the chest. INDICATION: Port placement. FINDINGS: There is a left subclavian port placed with the tip at the SVC level. There is elevation of the left hemidiaphragm. The right lung is clear of focal infiltrates. There is background interstitial thickening. The heart size is slightly prominent. The left cardiac margin is not well seen however. Post CABG changes are seen. No pneumothorax or large effusion seen. There is probable small left effusion. IMPRESSION: 1. Left subclavian port is placed with the tip at the lower SVC level. 2. Stable elevated left hemidiaphragm with suggestion of a new small left effusion. Dictated by: Dictated on workstation # [id number]
[2017-06-03 13:00] VITALS: BP 115/68
[2017-06-03 13:30] VITALS: BP 117/74
--- NOTE | 2017-06-03 18:56 | Diagnostic Imaging Report ---
Intraoperative view of the chest. INDICATION: Port placement. 9 seconds of fluoroscopy time is provided. IMPRESSION: Provided image demonstrates port catheter at the level of the SVC. Dictated by: Dictated on workstation # [id number]
--- NOTE | 2017-06-08 09:46 | OPERATIVE REPORT ---
DATE OF SERVICE: 06/03/2017 ATTENDING PRIMARY CARE PHYSICIAN: Prasanth Suárez DO. PREOPERATIVE DIAGNOSIS: Right lung adenocarcinoma. POSTOPERATIVE DIAGNOSIS: Right lung adenocarcinoma. PROCEDURE: Placement of left subclavian Groshong implantable catheter under fluoroscopy. SURGEON: Yayo Reyes MD. CHEMICAL PLANT MANAGER: Kedar Corea APRN. ANESTHESIA: Monitored anesthesia care. ESTIMATED BLOOD LOSS: Minimal. FINDINGS: Catheter tip at superior vena cava - right atrial junction. DISPOSITION: The patient tolerated the procedure well. INDICATIONS: The patient is a 71-year-old male who we have seen before in the past for reflux esophagitis as well as diverticulosis. Approximately one month ago, on routine x-ray at the [facility] where he follows up, a mass was identified. He was referred to Dr. Messina where a bronchoscopy was performed. Washings were done and found to be adenocarcinoma of the lung. A PET-CT scan was also performed, which did show the right lung mass as well as several lymph nodes in the mediastinum, which were contralateral consistent with stage IV disease. He has been seen by oncology for the recommendation for chemotherapy. DESCRIPTION OF PROCEDURE: The patient was brought to the operating room, laid supine on the table. After adequate IV pain and sedative medications and monitored anesthesia care, the neck and chest were prepped and draped in a standard surgical fashion. 0.5% Marcaine with epinephrine was then used to anesthetize the overlying skin in the left subclavian region. The subclavian vein was then cannulated with drawing of venous blood. The guidewire was then inserted under fluoroscopy. The cannulated needle removed and a skin incision made using a 15 blade. The dilator and sheath were then introduced. The guidewire and the dilator were then removed and the Groshong implantable catheter was placed until the tip of the catheter was at the superior vena cava - right atrial junction. The sheath was then removed. The inner wire within the catheter was then removed and the catheter cut down to length and the port placed onto the catheter. The skin incision was extended laterally and the subcutaneous reservoir created between the subcutaneous fat and the anterior pectoralis fascia. This was done using a blunt dissection as well as electrocautery. The port was then placed into the chest reservoir and sutured to the anterior pectoralis fascia using 3-0 Vicryl interrupted sutures. The subcutaneous tissue was then reapproximated using 3-0 Vicryl interrupted sutures. Skin was closed using 4-0 Monocryl running subcuticular suture. The port was accessed with a non-coring Jaramillo needle and venous blood drawn out and heparinized saline pushed in without any resistance. The skin incision was then covered with Dermabond. The patient tolerated the procedure well. We will get a post-procedure chest x-ray and once placement was confirmed, the port may be accessed and used at any time. Job ID: [id number] DocumentID: [id number] Dictated Date: 06/03/2017 12:02:06 Income Tax Return Preparer Date: 06/03/2017 15:25:37 Dictated By: YAYO REYES MD <Dictated by YAYO REYES MD> <Electronically signed by YAYO REYES MD> 06/03/17 1646
== END | disposition home or self-care (01) ==
LOC: SDC 08:04
PROVIDERS: ATTEND Surgery
DX: C34.91 Malignant neoplasm of unspecified part of right bronchus or lung (principal); I25.10 Atherosclerotic heart disease of native coronary artery without angina pectoris; I10 Essential (primary) hypertension; E78.00 Pure hypercholesterolemia, unspecified; I25.9 Chronic ischemic heart disease, unspecified; E04.1 Nontoxic single thyroid nodule; K21.9 Gastro-esophageal reflux disease without esophagitis; F17.210 Nicotine dependence, cigarettes, uncomplicated; G47.33 Obstructive sleep apnea (adult) (pediatric); Z95.1 Presence of aortocoronary bypass graft; Z79.82 Long term (current) use of aspirin; Z79.899 Other long term (current) drug therapy
CPT/HCPCS: 71010; 87081

== ENCOUNTER → 2017-07-29 | Outpatient (CLI) | payer BC ==
[~2017-07-29] MED LIST changes: -0.9% SODIUM CHLORIDE PF INJ 20 ML VIAL ONE; -ACETAMINOPHEN 325 MG TABLET/CAPLET (TYLENOL) PO PRN; +ACHD5005 PO; -CATHETER FLUSH 10 ML SYR IV PRN; -FAMOTIDINE 20MG/2ML IV (PEPCID) IV ONE; +GADOBUTROL 10 MMOL/10 ML (GADAVIST) VIAL IV ONE; -HEParin (CENTRAL IV FLUSH) 500 UNIT/5 ML SYR ONE; +HYDR-34 PO; -HYDR-3812 PO; -HYDR-3816 PO; -HYDROcodone/APAP 5 MG/325 MG (LORTAB) TAB PO ONE; -LACTATED RINGERS 1,000 ML IV PRN; -LIDOCAINE PF 2% 5 ML (XYLOCAINE) VIAL ONE; -LIDOCAINE/EPI 1%-1:200,000 (XYLOCAINE) 10 ML VIAL ONE; -MIDAZOLAM 2 MG/2 ML (VERSED) VIAL ONE; -ONDANSETRON 4 MG/2 ML (SDV) Z0FRAN IVP PRN; -ceFAZolin 1 GM/NS 50 ML IVPB IV ONE; -ceFAZolin INJECTION 1,000 MG in NS (IVPB) 50 ML IV ONE; -morphine INJ 10 MG/ML 1ML (SYR OR VIAL) IVP PRN; -proPOfol 200 MG/20 ML (DIPRIVAN) VIAL IV ONE
--- NOTE | 2017-07-29 15:32 | Diagnostic Imaging Report ---
INDICATION: Lung carcinoma with balance disturbance. TECHNIQUE: Pre and post intravenous contrast multiplanar and multisequence imaging of the brain was performed. COMPARISON: Correlation is made with prior MRI of the brain from 05/31/2017. FINDINGS: The ventricles and sulci are stable in appearance. No diffusion restriction is identified to suggest acute ischemia. Previously noted small focus of susceptibility in the left basal ganglia is stable and again suggestive of small focal hemorrhage. The normal expected flow-voids within the carotid siphons are seen. No enhancing mass is identified following contrast administration to suggest intracranial metastatic disease. The corpus callosum is unremarkable. The sella and parasellar structures are unremarkable. IMPRESSION: Stable pre and post contrast MRI of the brain when compared with exam from 05/31/2017. There is no evidence of intracranial metastatic disease. Dictated by: Dictated on workstation # [id number]
== END ==
LOC: RAD 14:02
PROVIDERS: ATTEND Internal Medicine Hematology & Oncology
DX: C34.11 Malignant neoplasm of upper lobe, right bronchus or lung (principal); R41.82 Altered mental status, unspecified; R26.89 Other abnormalities of gait and mobility
CPT/HCPCS: 70553

== ENCOUNTER 2017-08-05 14:37 | Outpatient (RCR) | payer BC, MEDICARE ==
[2017-05-27 10:03] LABS: BASOPHILS % (AUTO) 0 % (0-10); EOSINOPHILS # (AUTO) 0.2 10^3/uL (0.0-0.3); EOSINOPHILS % (AUTO) 2 % (0-10); HEMATOCRIT 42 % (40-54); HEMOGLOBIN 14.5 G/DL (13.3-17.7); LYMPHOCYTES # (AUTO) 2.1 X 10^3 (1.0-4.0); LYMPHOCYTES % (AUTO) 28 % (12-44); MEAN CORPUSCULAR HEMOGLOBIN 34 PG (25-34); MEAN CORPUSCULAR HGB CONC 34 G/DL (32-36); MEAN CORPUSCULAR VOLUME 98 FL (80-99); MEAN PLATELET VOLUME 9.9 FL (7.4-10.4); MONOCYTES # (AUTO) 0.5 X 10^3 (0.0-1.0); MONOCYTES % (AUTO) 6 % (0-12); NEUTROPHILS # (AUTO) 4.8 X 10^3 (1.8-7.8); NEUTROPHILS % (AUTO) 63 % (42-75); PLATELET COUNT 172 10^3/uL (130-400); RED BLOOD COUNT 4.31 10^6/uL (4.35-5.85); RED CELL DISTRIBUTION WIDTH 12.5 % (10.0-14.5); WHITE BLOOD COUNT 7.5 10^3/uL (4.3-11.0)
[2017-05-27 10:26] LABS: ALANINE AMINOTRANSFERASE 18 U/L (0-55); ALBUMIN 3.8 GM/DL (3.2-4.5); ALKALINE PHOSPHATASE 105 U/L (40-136); BILIRUBIN,TOTAL 0.6 MG/DL (0.1-1.0); BUN/CREATININE RATIO 21; CARBON DIOXIDE 30 MMOL/L (21-32); CHLORIDE 103 MMOL/L (98-107); CREATININE SERUM 0.77 MG/DL (0.60-1.30); GFR ESTIMATED > 60; GLUCOSE 108 MG/DL (70-105); POTASSIUM 4.3 MMOL/L (3.6-5.0); SODIUM 140 MMOL/L (135-145); TOTAL PROTEIN 6.8 GM/DL (6.4-8.2)
[2017-06-09 11:45] LABS: BASOPHILS % (AUTO) 0 % (0-10); EOSINOPHILS % (AUTO) 0 % (0-10); HEMATOCRIT 43 % (40-54); HEMOGLOBIN 15.3 G/DL (13.3-17.7); LYMPHOCYTES # (AUTO) 0.8 X 10^3 (1.0-4.0); LYMPHOCYTES % (AUTO) 12 % (12-44); MEAN CORPUSCULAR HEMOGLOBIN 34 PG (25-34); MEAN CORPUSCULAR HGB CONC 36 G/DL (32-36); MEAN CORPUSCULAR VOLUME 95 FL (80-99); MEAN PLATELET VOLUME 10.1 FL (7.4-10.4); MONOCYTES % (AUTO) 1 % (0-12); NEUTROPHILS # (AUTO) 6.4 X 10^3 (1.8-7.8); NEUTROPHILS % (AUTO) 88 % (42-75); PLATELET COUNT 187 10^3/uL (130-400); RED CELL DISTRIBUTION WIDTH 12.4 % (10.0-14.5); WHITE BLOOD COUNT 7.3 10^3/uL (4.3-11.0)
[2017-06-09 12:04] LABS: ALANINE AMINOTRANSFERASE 17 U/L (0-55); ALKALINE PHOSPHATASE 96 U/L (40-136); BILIRUBIN,TOTAL 0.5 MG/DL (0.1-1.0); BUN/CREATININE RATIO 19; CALCIUM 9.3 MG/DL (8.5-10.1); CARBON DIOXIDE 28 MMOL/L (21-32); CHLORIDE 103 MMOL/L (98-107); CREATININE SERUM 0.72 MG/DL (0.60-1.30); GFR ESTIMATED > 60; GLUCOSE 124 MG/DL (70-105); POTASSIUM 3.7 MMOL/L (3.6-5.0); SODIUM 139 MMOL/L (135-145); TOTAL PROTEIN 7.5 GM/DL (6.4-8.2)
[2017-06-16 10:20] LABS: BASOPHILS % (AUTO) 0 % (0-10); EOSINOPHILS % (AUTO) 0 % (0-10); HEMATOCRIT 42 % (40-54); HEMOGLOBIN 14.8 G/DL (13.3-17.7); LYMPHOCYTES # (AUTO) 0.6 X 10^3 (1.0-4.0); LYMPHOCYTES % (AUTO) 11 % (12-44); MEAN CORPUSCULAR HEMOGLOBIN 34 PG (25-34); MEAN CORPUSCULAR HGB CONC 36 G/DL (32-36); MEAN CORPUSCULAR VOLUME 96 FL (80-99); MEAN PLATELET VOLUME 10.3 FL (7.4-10.4); MONOCYTES # (AUTO) 0.1 X 10^3 (0.0-1.0); MONOCYTES % (AUTO) 1 % (0-12); NEUTROPHILS % (AUTO) 87 % (42-75); PLATELET COUNT 169 10^3/uL (130-400); RED BLOOD COUNT 4.33 10^6/uL (4.35-5.85); RED CELL DISTRIBUTION WIDTH 12.2 % (10.0-14.5); WHITE BLOOD COUNT 5.7 10^3/uL (4.3-11.0)
[2017-06-16 10:38] LABS: BUN/CREATININE RATIO 18; CARBON DIOXIDE 29 MMOL/L (21-32); CHLORIDE 104 MMOL/L (98-107); CREATININE SERUM 0.73 MG/DL (0.60-1.30); POTASSIUM 4.2 MMOL/L (3.6-5.0); SODIUM 140 MMOL/L (135-145)
[2017-06-16 10:39] LABS: GFR ESTIMATED > 60; GLUCOSE 118 MG/DL (70-105)
[2017-06-23 11:23] LABS: BASOPHILS % (AUTO) 0 % (0-10); EOSINOPHILS % (AUTO) 0 % (0-10); HEMATOCRIT 42 % (40-54); HEMOGLOBIN 14.7 G/DL (13.3-17.7); LYMPHOCYTES # (AUTO) 0.4 X 10^3 (1.0-4.0); LYMPHOCYTES % (AUTO) 15 % (12-44); MEAN CORPUSCULAR HEMOGLOBIN 34 PG (25-34); MEAN CORPUSCULAR HGB CONC 35 G/DL (32-36); MEAN CORPUSCULAR VOLUME 97 FL (80-99); MEAN PLATELET VOLUME 9.6 FL (7.4-10.4); MONOCYTES % (AUTO) 1 % (0-12); NEUTROPHILS # (AUTO) 2.3 X 10^3 (1.8-7.8); NEUTROPHILS % (AUTO) 84 % (42-75); PLATELET COUNT 168 10^3/uL (130-400); RED BLOOD COUNT 4.35 10^6/uL (4.35-5.85); RED CELL DISTRIBUTION WIDTH 12.5 % (10.0-14.5); WHITE BLOOD COUNT 2.7 10^3/uL (4.3-11.0)
[2017-06-23 11:48] LABS: BUN/CREATININE RATIO 19; CALCIUM 9.1 MG/DL (8.5-10.1); CARBON DIOXIDE 26 MMOL/L (21-32); CHLORIDE 104 MMOL/L (98-107); GFR ESTIMATED > 60; GLUCOSE 129 MG/DL (70-105); POTASSIUM 4.4 MMOL/L (3.6-5.0); SODIUM 139 MMOL/L (135-145)
[2017-06-30 10:37] LABS: BASOPHILS % (AUTO) 0 % (0-10); EOSINOPHILS % (AUTO) 0 % (0-10); HEMATOCRIT 40 % (40-54); HEMOGLOBIN 13.7 G/DL (13.3-17.7); LYMPHOCYTES # (AUTO) 0.4 X 10^3 (1.0-4.0); LYMPHOCYTES % (AUTO) 21 % (12-44); MEAN CORPUSCULAR HEMOGLOBIN 34 PG (25-34); MEAN CORPUSCULAR HGB CONC 35 G/DL (32-36); MEAN CORPUSCULAR VOLUME 97 FL (80-99); MEAN PLATELET VOLUME 9.5 FL (7.4-10.4); MONOCYTES # (AUTO) 0.1 X 10^3 (0.0-1.0); MONOCYTES % (AUTO) 4 % (0-12); NEUTROPHILS # (AUTO) 1.3 X 10^3 (1.8-7.8); NEUTROPHILS % (AUTO) 75 % (42-75); PLATELET COUNT 138 10^3/uL (130-400); RED BLOOD COUNT 4.06 10^6/uL (4.35-5.85); RED CELL DISTRIBUTION WIDTH 12.9 % (10.0-14.5); WHITE BLOOD COUNT 1.8 10^3/uL (4.3-11.0)
[2017-06-30 10:56] LABS: BUN/CREATININE RATIO 27; CALCIUM 8.8 MG/DL (8.5-10.1); CARBON DIOXIDE 24 MMOL/L (21-32); CHLORIDE 103 MMOL/L (98-107); CREATININE SERUM 0.77 MG/DL (0.60-1.30); GFR ESTIMATED > 60; GLUCOSE 137 MG/DL (70-105); POTASSIUM 4.3 MMOL/L (3.6-5.0); SODIUM 137 MMOL/L (135-145)
[2017-07-06 09:15] LABS: BASOPHILS % (AUTO) 0 % (0-10); EOSINOPHILS # (AUTO) 0.1 10^3/uL (0.0-0.3); EOSINOPHILS % (AUTO) 2 % (0-10); HEMATOCRIT 39 % (40-54); HEMOGLOBIN 13.8 G/DL (13.3-17.7); LYMPHOCYTES # (AUTO) 1.3 X 10^3 (1.0-4.0); LYMPHOCYTES % (AUTO) 38 % (12-44); MEAN CORPUSCULAR HEMOGLOBIN 34 PG (25-34); MEAN CORPUSCULAR HGB CONC 36 G/DL (32-36); MEAN CORPUSCULAR VOLUME 96 FL (80-99); MEAN PLATELET VOLUME 9.5 FL (7.4-10.4); MONOCYTES # (AUTO) 0.4 X 10^3 (0.0-1.0); MONOCYTES % (AUTO) 12 % (0-12); NEUTROPHILS # (AUTO) 1.7 X 10^3 (1.8-7.8); NEUTROPHILS % (AUTO) 48 % (42-75); PLATELET COUNT 119 10^3/uL (130-400); RED BLOOD COUNT 4.04 10^6/uL (4.35-5.85); RED CELL DISTRIBUTION WIDTH 13.4 % (10.0-14.5); WHITE BLOOD COUNT 3.5 10^3/uL (4.3-11.0)
[2017-07-06 09:33] LABS: ALANINE AMINOTRANSFERASE 22 U/L (0-55); ALBUMIN 3.7 GM/DL (3.2-4.5); ALKALINE PHOSPHATASE 80 U/L (40-136); BILIRUBIN,TOTAL 0.7 MG/DL (0.1-1.0); BUN/CREATININE RATIO 18; CALCIUM 8.6 MG/DL (8.5-10.1); CARBON DIOXIDE 26 MMOL/L (21-32); CHLORIDE 104 MMOL/L (98-107); CREATININE SERUM 0.73 MG/DL (0.60-1.30); GFR ESTIMATED > 60; GLUCOSE 109 MG/DL (70-105); POTASSIUM 3.7 MMOL/L (3.6-5.0); SODIUM 139 MMOL/L (135-145); TOTAL PROTEIN 6.4 GM/DL (6.4-8.2)
[2017-07-14 11:11] LABS: BASOPHILS % (AUTO) 0 % (0-10); EOSINOPHILS % (AUTO) 0 % (0-10); HEMATOCRIT 36 % (40-54); HEMOGLOBIN 13.1 G/DL (13.3-17.7); LYMPHOCYTES # (AUTO) 0.3 X 10^3 (1.0-4.0); LYMPHOCYTES % (AUTO) 5 % (12-44); MEAN CORPUSCULAR HEMOGLOBIN 35 PG (25-34); MEAN CORPUSCULAR HGB CONC 36 G/DL (32-36); MEAN CORPUSCULAR VOLUME 96 FL (80-99); MEAN PLATELET VOLUME 9.2 FL (7.4-10.4); MONOCYTES # (AUTO) 0.1 X 10^3 (0.0-1.0); MONOCYTES % (AUTO) 1 % (0-12); NEUTROPHILS # (AUTO) 6.9 X 10^3 (1.8-7.8); NEUTROPHILS % (AUTO) 95 % (42-75); PLATELET COUNT 121 10^3/uL (130-400); RED BLOOD COUNT 3.78 10^6/uL (4.35-5.85); RED CELL DISTRIBUTION WIDTH 13.3 % (10.0-14.5); WHITE BLOOD COUNT 7.3 10^3/uL (4.3-11.0)
[2017-07-14 11:28] LABS: BUN/CREATININE RATIO 32; CALCIUM 8.8 MG/DL (8.5-10.1); CARBON DIOXIDE 26 MMOL/L (21-32); CHLORIDE 104 MMOL/L (98-107); CREATININE SERUM 0.75 MG/DL (0.60-1.30); GFR ESTIMATED > 60; GLUCOSE 129 MG/DL (70-105); POTASSIUM 4.2 MMOL/L (3.6-5.0); SODIUM 140 MMOL/L (135-145)
[2017-07-21 10:13] LABS: BASOPHILS % (AUTO) 0 % (0-10); EOSINOPHILS % (AUTO) 0 % (0-10); HEMATOCRIT 39 % (40-54); HEMOGLOBIN 13.7 G/DL (13.3-17.7); LYMPHOCYTES # (AUTO) 0.3 X 10^3 (1.0-4.0); LYMPHOCYTES % (AUTO) 8 % (12-44); MEAN CORPUSCULAR HEMOGLOBIN 35 PG (25-34); MEAN CORPUSCULAR HGB CONC 36 G/DL (32-36); MEAN CORPUSCULAR VOLUME 98 FL (80-99); MEAN PLATELET VOLUME 9.4 FL (7.4-10.4); MONOCYTES % (AUTO) 1 % (0-12); NEUTROPHILS # (AUTO) 3.6 X 10^3 (1.8-7.8); NEUTROPHILS % (AUTO) 91 % (42-75); PLATELET COUNT 144 10^3/uL (130-400); RED BLOOD COUNT 3.96 10^6/uL (4.35-5.85); RED CELL DISTRIBUTION WIDTH 14.3 % (10.0-14.5)
[2017-07-21 10:36] LABS: ALANINE AMINOTRANSFERASE 24 U/L (0-55); ALBUMIN 4.1 GM/DL (3.2-4.5); ALKALINE PHOSPHATASE 83 U/L (40-136); BILIRUBIN,TOTAL 1.1 MG/DL (0.1-1.0); BUN/CREATININE RATIO 26; CALCIUM 8.9 MG/DL (8.5-10.1); CARBON DIOXIDE 24 MMOL/L (21-32); CHLORIDE 104 MMOL/L (98-107); CREATININE SERUM 0.73 MG/DL (0.60-1.30); GFR ESTIMATED > 60; GLUCOSE 159 MG/DL (70-105); MAGNESIUM 1.6 MG/DL (1.8-2.4); SODIUM 140 MMOL/L (135-145); TOTAL PROTEIN 7.1 GM/DL (6.4-8.2)
[2017-07-28 14:18] LABS: BASOPHILS % (AUTO) 0 % (0-10); EOSINOPHILS % (AUTO) 1 % (0-10); HEMATOCRIT 36 % (40-54); HEMOGLOBIN 12.7 G/DL (13.3-17.7); LYMPHOCYTES # (AUTO) 1.1 X 10^3 (1.0-4.0); LYMPHOCYTES % (AUTO) 36 % (12-44); MEAN CORPUSCULAR HEMOGLOBIN 35 PG (25-34); MEAN CORPUSCULAR HGB CONC 36 G/DL (32-36); MEAN CORPUSCULAR VOLUME 99 FL (80-99); MEAN PLATELET VOLUME 9.5 FL (7.4-10.4); MONOCYTES # (AUTO) 0.3 X 10^3 (0.0-1.0); MONOCYTES % (AUTO) 11 % (0-12); NEUTROPHILS # (AUTO) 1.6 X 10^3 (1.8-7.8); NEUTROPHILS % (AUTO) 52 % (42-75); PLATELET COUNT 126 10^3/uL (130-400); RED CELL DISTRIBUTION WIDTH 14.8 % (10.0-14.5); WHITE BLOOD COUNT 3.1 10^3/uL (4.3-11.0)
[2017-07-28 14:39] LABS: ALANINE AMINOTRANSFERASE 22 U/L (0-55); ALBUMIN 3.7 GM/DL (3.2-4.5); ALKALINE PHOSPHATASE 76 U/L (40-136); BILIRUBIN,TOTAL 0.9 MG/DL (0.1-1.0); BUN/CREATININE RATIO 19; CALCIUM 8.7 MG/DL (8.5-10.1); CARBON DIOXIDE 29 MMOL/L (21-32); CHLORIDE 103 MMOL/L (98-107); CREATININE SERUM 0.72 MG/DL (0.60-1.30); GFR ESTIMATED > 60; GLUCOSE 93 MG/DL (70-105); POTASSIUM 4.2 MMOL/L (3.6-5.0); SODIUM 140 MMOL/L (135-145); TOTAL PROTEIN 6.7 GM/DL (6.4-8.2)
[2017-08-04 13:04] LABS: BASOPHILS % (AUTO) 0 % (0-10); EOSINOPHILS # (AUTO) 0.1 10^3/uL (0.0-0.3); EOSINOPHILS % (AUTO) 2 % (0-10); HEMATOCRIT 32 % (40-54); HEMOGLOBIN 11.6 G/DL (13.3-17.7); LYMPHOCYTES # (AUTO) 1.1 X 10^3 (1.0-4.0); LYMPHOCYTES % (AUTO) 39 % (12-44); MEAN CORPUSCULAR HEMOGLOBIN 36 PG (25-34); MEAN CORPUSCULAR HGB CONC 36 G/DL (32-36); MEAN CORPUSCULAR VOLUME 99 FL (80-99); MEAN PLATELET VOLUME 9.5 FL (7.4-10.4); MONOCYTES # (AUTO) 0.3 X 10^3 (0.0-1.0); MONOCYTES % (AUTO) 10 % (0-12); NEUTROPHILS # (AUTO) 1.3 X 10^3 (1.8-7.8); NEUTROPHILS % (AUTO) 49 % (42-75); PLATELET COUNT 102 10^3/uL (130-400); RED BLOOD COUNT 3.25 10^6/uL (4.35-5.85); RED CELL DISTRIBUTION WIDTH 14.7 % (10.0-14.5); WHITE BLOOD COUNT 2.7 10^3/uL (4.3-11.0)
[2017-08-04 13:25] LABS: ALANINE AMINOTRANSFERASE 20 U/L (0-55); ALBUMIN 3.5 GM/DL (3.2-4.5); ALKALINE PHOSPHATASE 73 U/L (40-136); BILIRUBIN,TOTAL 0.9 MG/DL (0.1-1.0); BUN/CREATININE RATIO 25; CALCIUM 8.6 MG/DL (8.5-10.1); CARBON DIOXIDE 26 MMOL/L (21-32); CHLORIDE 103 MMOL/L (98-107); CREATININE SERUM 0.76 MG/DL (0.60-1.30); GFR ESTIMATED > 60; GLUCOSE 105 MG/DL (70-105); POTASSIUM 4.2 MMOL/L (3.6-5.0); SODIUM 137 MMOL/L (135-145); TOTAL PROTEIN 6.4 GM/DL (6.4-8.2)
[~2017-08-05] VITALS: Ht 179.1 cm; Wt 96.6 kg
[~2017-08-05 14:37] MED LIST changes: +CARBOPLATIN 160 MG in D5W 50 ML IV(CANCER CTR) 50 ML IV SCH; +CARBOPLATIN 170 MG in D5W 50 ML IV(CANCER CTR) 50 ML IV SCH; +FAMOTIDINE 20MG/2ML IV (CANCER CTR) IV SCH; -GADOBUTROL 10 MMOL/10 ML (GADAVIST) VIAL IV ONE; +NORMAL SALINE IV SCH; +NS IV 1000 ML (CANCER CTR) IV SCH; +PACLITAXEL 80 MG in NORMAL SALINE (CANCER CENTER) 250 ML IV SCH; +PACLITAXEL IV SCH; +PALONOSETRON 0.25 MG, DEXAMETHASONE 10 MG/NS 50 ML IVPB IV PRN; +PALONOSETRON HCL 0.25 MG, DEXAMETHASONE PF INJ (CANCER C 10 MG in D5W 50 ML IV(CANCER C... IV PRN; +diphenhydrAMINE 25 MG TAB (BENADRYL) CANCER CENTER PO SCH; +diphenhydrAMINE 50 MG/ML INJ (CANCER CENTER) IV PRN
== END 2017-08-25 | disposition home or self-care (01) ==
LOC: ONC 14:37
PROVIDERS: ATTEND Internal Medicine Hematology & Oncology
DX: Z51.0 Encounter for antineoplastic radiation therapy (principal); Z51.11 Encounter for antineoplastic chemotherapy; C34.11 Malignant neoplasm of upper lobe, right bronchus or lung; C77.1 Secondary and unspecified malignant neoplasm of intrathoracic lymph nodes; I10 Essential (primary) hypertension; J44.9 Chronic obstructive pulmonary disease, unspecified; F17.210 Nicotine dependence, cigarettes, uncomplicated; K58.0 Irritable bowel syndrome with diarrhea; M51.36 Other intervertebral disc degeneration, lumbar region; M47.816 Spondylosis without myelopathy or radiculopathy, lumbar region; I25.10 Atherosclerotic heart disease of native coronary artery without angina pectoris; R53.83 Other fatigue; E66.9 Obesity, unspecified; Z68.30 Body mass index [BMI] 30.0-30.9, adult; Z95.1 Presence of aortocoronary bypass graft; Z79.899 Other long term (current) drug therapy
CPT/HCPCS: 36415; 36591; 77280; 77295; 77300; 77307; 77332; 77334; 77336; 77417; 77470; 80048; 80053; 82378; 83735; 85025; 96375; 96413; 96417; 99213; 99214

== ENCOUNTER → 2017-09-01 | Outpatient (CLI) | payer BC ==
[~2017-09-01] MED LIST changes: +BARIUM SUSPENSION 2.1% (VANILLA SILQ) 450 ML PO ONE; -CARBOPLATIN 160 MG in D5W 50 ML IV(CANCER CTR) 50 ML IV SCH; -CARBOPLATIN 170 MG in D5W 50 ML IV(CANCER CTR) 50 ML IV SCH; -FAMOTIDINE 20MG/2ML IV (CANCER CTR) IV SCH; +IOHEXOL 350 MG/ML 100 ML (OMNIPAQUE 350) VIAL IV ONE; -NORMAL SALINE IV SCH; +NS 250 ML (IVPB) BAG IV ONE; -NS IV 1000 ML (CANCER CTR) IV SCH; -PACLITAXEL 80 MG in NORMAL SALINE (CANCER CENTER) 250 ML IV SCH; -PACLITAXEL IV SCH; -PALONOSETRON 0.25 MG, DEXAMETHASONE 10 MG/NS 50 ML IVPB IV PRN; -PALONOSETRON HCL 0.25 MG, DEXAMETHASONE PF INJ (CANCER C 10 MG in D5W 50 ML IV(CANCER C... IV PRN; -diphenhydrAMINE 25 MG TAB (BENADRYL) CANCER CENTER PO SCH; -diphenhydrAMINE 50 MG/ML INJ (CANCER CENTER) IV PRN
--- NOTE | 2017-09-01 09:28 | Diagnostic Imaging Report ---
PROCEDURE: CT chest and abdomen with contrast. TECHNIQUE: Multiple contiguous axial images were obtained through the chest and abdomen after the administration of intravenous contrast. INDICATION: Lung cancer Correlation is made to PET/CT scan performed on 05/04/2017. There is a persistent subpleural spiculated nodule in the lateral right upper lobe which measures approximately 1 cm in diameter. This is approximately 50% smaller than on the previous study. There's been mild increase in infiltrate within the right posterior costophrenic sulcus. There is continued elevation of the left hemidiaphragm with probable unchanged faint 0.4 cm subpleural nodule in the lateral left lower lobe just below the aortic arch. Pretracheal lymph node at the level of aortic arch measures 1.1 cm compared with 1.2 cm on the previous study. Occasional small lymph nodes are also seen extending into the left hilum. There is no significant pleural or pericardial fluid. There is no evidence of new pulmonary mass. IMPRESSION: Mild interval decrease in size of spiculated subpleural nodule in the upper lobe of the right lung. Tiny punctate nodule in the left lower lobe is not significantly changed. There is also minimal change within mildly prominent mediastinal lymph nodes when compared to the previous study. No new abnormality is identified. CT abdomen: Multiple dominant cyst are again seen within the left kidney. Otherwise, there is no evidence of hepatic or splenic lesion. No pancreatic, adrenal gland or right renal abnormality is identified. Cyst in lower pole of the right kidney is likely stable as well. No free fluid is seen. Gallbladder is surgically absent. There is no evidence of pathologic abdominal adenopathy. There is mild aneurysmal dilatation of the distal abdominal aorta with linear filling defect which may represent focal dissection or linear thrombus. There is no evidence of propagating dissection. IMPRESSION: Dominant cyst in left kidney with small right lower pole renal cyst. Infrarenal abdominal aortic aneurysm with eccentric mural plaque and possible linear thrombus or focal dissection. There is no evidence of acute abnormality or metastatic disease in the abdomen. Dictated by: Dictated on workstation # [id number]
== END ==
LOC: RAD 08:14
PROVIDERS: ATTEND Internal Medicine Hematology & Oncology
DX: C34.11 Malignant neoplasm of upper lobe, right bronchus or lung (principal); N28.1 Cyst of kidney, acquired; I71.4 Abdominal aortic aneurysm, without rupture; I70.0 Atherosclerosis of aorta
CPT/HCPCS: 71260; 74160

== ENCOUNTER 2017-11-25 10:27 | Outpatient (RCR) | payer BC ==
[2017-09-08 13:04] LABS: BASOPHILS % (AUTO) 0 % (0-10); EOSINOPHILS # (AUTO) 0.1 10^3/uL (0.0-0.3); EOSINOPHILS % (AUTO) 1 % (0-10); HEMATOCRIT 33 % (40-54); HEMOGLOBIN 11.3 G/DL (13.3-17.7); LYMPHOCYTES # (AUTO) 1.3 X 10^3 (1.0-4.0); LYMPHOCYTES % (AUTO) 27 % (12-44); MEAN CORPUSCULAR HEMOGLOBIN 37 PG (25-34); MEAN CORPUSCULAR HGB CONC 35 G/DL (32-36); MEAN CORPUSCULAR VOLUME 105 FL (80-99); MEAN PLATELET VOLUME 9.1 FL (7.4-10.4); MONOCYTES # (AUTO) 0.5 X 10^3 (0.0-1.0); MONOCYTES % (AUTO) 10 % (0-12); NEUTROPHILS # (AUTO) 3.1 X 10^3 (1.8-7.8); NEUTROPHILS % (AUTO) 62 % (42-75); PLATELET COUNT 167 10^3/uL (130-400); RED CELL DISTRIBUTION WIDTH 14.9 % (10.0-14.5)
[2017-09-08 13:21] LABS: ALANINE AMINOTRANSFERASE 18 U/L (0-55); ALBUMIN 3.7 GM/DL (3.2-4.5); ALKALINE PHOSPHATASE 87 U/L (40-136); BILIRUBIN,TOTAL 0.8 MG/DL (0.1-1.0); BUN/CREATININE RATIO 15; CALCIUM 8.8 MG/DL (8.5-10.1); CARBON DIOXIDE 31 MMOL/L (21-32); CHLORIDE 103 MMOL/L (98-107); CREATININE SERUM 0.73 MG/DL (0.60-1.30); GFR ESTIMATED > 60; GLUCOSE 89 MG/DL (70-105); POTASSIUM 3.9 MMOL/L (3.6-5.0); SODIUM 141 MMOL/L (135-145); TOTAL PROTEIN 6.4 GM/DL (6.4-8.2)
[2017-09-30 10:22] LABS: BASOPHILS % (AUTO) 0 % (0-10); EOSINOPHILS # (AUTO) 0.1 10^3/uL (0.0-0.3); EOSINOPHILS % (AUTO) 2 % (0-10); HEMATOCRIT 35 % (40-54); HEMOGLOBIN 11.9 G/DL (13.3-17.7); LYMPHOCYTES # (AUTO) 1.3 X 10^3 (1.0-4.0); LYMPHOCYTES % (AUTO) 22 % (12-44); MEAN CORPUSCULAR HEMOGLOBIN 36 PG (25-34); MEAN CORPUSCULAR HGB CONC 35 G/DL (32-36); MEAN CORPUSCULAR VOLUME 105 FL (80-99); MEAN PLATELET VOLUME 9.1 FL (7.4-10.4); MONOCYTES # (AUTO) 0.4 X 10^3 (0.0-1.0); MONOCYTES % (AUTO) 7 % (0-12); NEUTROPHILS % (AUTO) 69 % (42-75); PLATELET COUNT 149 10^3/uL (130-400); RED BLOOD COUNT 3.29 10^6/uL (4.35-5.85); RED CELL DISTRIBUTION WIDTH 12.8 % (10.0-14.5); WHITE BLOOD COUNT 5.7 10^3/uL (4.3-11.0)
[2017-09-30 10:42] LABS: ALANINE AMINOTRANSFERASE 14 U/L (0-55); ALBUMIN 3.7 GM/DL (3.2-4.5); ALKALINE PHOSPHATASE 85 U/L (40-136); BILIRUBIN,TOTAL 0.7 MG/DL (0.1-1.0); BUN/CREATININE RATIO 17; CARBON DIOXIDE 27 MMOL/L (21-32); CHLORIDE 104 MMOL/L (98-107); GFR ESTIMATED > 60; GLUCOSE 119 MG/DL (70-105); POTASSIUM 3.4 MMOL/L (3.6-5.0); SODIUM 140 MMOL/L (135-145); TOTAL PROTEIN 6.5 GM/DL (6.4-8.2)
[2017-10-14 09:30] LABS: BASOPHILS % (AUTO) 0 % (0-10); EOSINOPHILS # (AUTO) 0.1 10^3/uL (0.0-0.3); EOSINOPHILS % (AUTO) 2 % (0-10); HEMATOCRIT 38 % (40-54); LYMPHOCYTES # (AUTO) 1.2 X 10^3 (1.0-4.0); LYMPHOCYTES % (AUTO) 22 % (12-44); MEAN CORPUSCULAR HEMOGLOBIN 35 PG (25-34); MEAN CORPUSCULAR HGB CONC 34 G/DL (32-36); MEAN CORPUSCULAR VOLUME 104 FL (80-99); MEAN PLATELET VOLUME 9.2 FL (7.4-10.4); MONOCYTES # (AUTO) 0.5 X 10^3 (0.0-1.0); MONOCYTES % (AUTO) 10 % (0-12); NEUTROPHILS # (AUTO) 3.6 X 10^3 (1.8-7.8); NEUTROPHILS % (AUTO) 66 % (42-75); PLATELET COUNT 151 10^3/uL (130-400); RED BLOOD COUNT 3.69 10^6/uL (4.35-5.85); RED CELL DISTRIBUTION WIDTH 12.4 % (10.0-14.5); WHITE BLOOD COUNT 5.5 10^3/uL (4.3-11.0)
[2017-10-14 09:59] LABS: ALANINE AMINOTRANSFERASE 14 U/L (0-55); ALBUMIN 3.8 GM/DL (3.2-4.5); ALKALINE PHOSPHATASE 91 U/L (40-136); BILIRUBIN,TOTAL 0.6 MG/DL (0.1-1.0); BUN/CREATININE RATIO 20; CALCIUM 8.9 MG/DL (8.5-10.1); CARBON DIOXIDE 30 MMOL/L (21-32); CHLORIDE 103 MMOL/L (98-107); CREATININE SERUM 0.71 MG/DL (0.60-1.30); GFR ESTIMATED > 60; GLUCOSE 95 MG/DL (70-105); POTASSIUM 3.9 MMOL/L (3.6-5.0); SODIUM 139 MMOL/L (135-145); TOTAL PROTEIN 6.9 GM/DL (6.4-8.2)
[2017-10-28 10:00] LABS: BASOPHILS % (AUTO) 0 % (0-10); EOSINOPHILS # (AUTO) 0.1 10^3/uL (0.0-0.3); EOSINOPHILS % (AUTO) 2 % (0-10); HEMATOCRIT 38 % (40-54); HEMOGLOBIN 12.9 G/DL (13.3-17.7); LYMPHOCYTES # (AUTO) 1.4 X 10^3 (1.0-4.0); LYMPHOCYTES % (AUTO) 24 % (12-44); MEAN CORPUSCULAR HEMOGLOBIN 35 PG (25-34); MEAN CORPUSCULAR HGB CONC 34 G/DL (32-36); MEAN CORPUSCULAR VOLUME 103 FL (80-99); MEAN PLATELET VOLUME 9.1 FL (7.4-10.4); MONOCYTES # (AUTO) 0.5 X 10^3 (0.0-1.0); MONOCYTES % (AUTO) 8 % (0-12); NEUTROPHILS # (AUTO) 3.9 X 10^3 (1.8-7.8); NEUTROPHILS % (AUTO) 66 % (42-75); PLATELET COUNT 158 10^3/uL (130-400); RED CELL DISTRIBUTION WIDTH 12.3 % (10.0-14.5); WHITE BLOOD COUNT 5.9 10^3/uL (4.3-11.0)
[2017-10-28 10:23] LABS: ALANINE AMINOTRANSFERASE 10 U/L (0-55); ALBUMIN 3.9 GM/DL (3.2-4.5); ALKALINE PHOSPHATASE 98 U/L (40-136); BILIRUBIN,TOTAL 0.5 MG/DL (0.1-1.0); BUN/CREATININE RATIO 19; CALCIUM 8.9 MG/DL (8.5-10.1); CARBON DIOXIDE 28 MMOL/L (21-32); CHLORIDE 105 MMOL/L (98-107); CREATININE SERUM 0.78 MG/DL (0.60-1.30); GFR ESTIMATED > 60; GLUCOSE 99 MG/DL (70-105); POTASSIUM 3.7 MMOL/L (3.6-5.0); SODIUM 141 MMOL/L (135-145); TOTAL PROTEIN 6.8 GM/DL (6.4-8.2)
[2017-11-11 09:43] LABS: BASOPHILS % (AUTO) 0 % (0-10); EOSINOPHILS # (AUTO) 0.1 10^3/uL (0.0-0.3); EOSINOPHILS % (AUTO) 2 % (0-10); HEMATOCRIT 40 % (40-54); HEMOGLOBIN 13.7 G/DL (13.3-17.7); LYMPHOCYTES # (AUTO) 1.6 X 10^3 (1.0-4.0); LYMPHOCYTES % (AUTO) 25 % (12-44); MEAN CORPUSCULAR HEMOGLOBIN 35 PG (25-34); MEAN CORPUSCULAR HGB CONC 34 G/DL (32-36); MEAN CORPUSCULAR VOLUME 100 FL (80-99); MEAN PLATELET VOLUME 9.3 FL (7.4-10.4); MONOCYTES # (AUTO) 0.4 X 10^3 (0.0-1.0); MONOCYTES % (AUTO) 7 % (0-12); NEUTROPHILS # (AUTO) 4.1 X 10^3 (1.8-7.8); NEUTROPHILS % (AUTO) 66 % (42-75); PLATELET COUNT 151 10^3/uL (130-400); RED BLOOD COUNT 3.97 10^6/uL (4.35-5.85); RED CELL DISTRIBUTION WIDTH 12.1 % (10.0-14.5); WHITE BLOOD COUNT 6.2 10^3/uL (4.3-11.0)
[2017-11-11 10:01] LABS: ALANINE AMINOTRANSFERASE 12 U/L (0-55); ALKALINE PHOSPHATASE 100 U/L (40-136); BILIRUBIN,TOTAL 0.6 MG/DL (0.1-1.0); BUN/CREATININE RATIO 17; CALCIUM 8.9 MG/DL (8.5-10.1); CARBON DIOXIDE 26 MMOL/L (21-32); CHLORIDE 105 MMOL/L (98-107); CREATININE SERUM 0.71 MG/DL (0.60-1.30); GFR ESTIMATED > 60; GLUCOSE 96 MG/DL (70-105); POTASSIUM 3.6 MMOL/L (3.6-5.0); SODIUM 140 MMOL/L (135-145)
[~2017-11-25] VITALS: Ht 179.1 cm; Wt 87.5 kg
[~2017-11-25 10:27] MED LIST changes: -BARIUM SUSPENSION 2.1% (VANILLA SILQ) 450 ML PO ONE; +CYANOCOBALAMIN INJ 1000 MCG/ML (CANCER CENTER) ONE; +DURVALUMAB IV SCH; -IOHEXOL 350 MG/ML 100 ML (OMNIPAQUE 350) VIAL IV ONE; -NS 250 ML (IVPB) BAG IV ONE; +NS IV 500 ML (CANCER CENTER) IV SCH; +NS IV SCH
[2017-11-25 10:47] LABS: BASOPHILS % (AUTO) 0 % (0-10); EOSINOPHILS # (AUTO) 0.2 10^3/uL (0.0-0.3); EOSINOPHILS % (AUTO) 3 % (0-10); HEMATOCRIT 39 % (40-54); HEMOGLOBIN 13.8 G/DL (13.3-17.7); LYMPHOCYTES # (AUTO) 1.7 X 10^3 (1.0-4.0); LYMPHOCYTES % (AUTO) 30 % (12-44); MEAN CORPUSCULAR HEMOGLOBIN 35 PG (25-34); MEAN CORPUSCULAR HGB CONC 35 G/DL (32-36); MEAN CORPUSCULAR VOLUME 99 FL (80-99); MEAN PLATELET VOLUME 9.7 FL (7.4-10.4); MONOCYTES # (AUTO) 0.5 X 10^3 (0.0-1.0); MONOCYTES % (AUTO) 8 % (0-12); NEUTROPHILS # (AUTO) 3.4 X 10^3 (1.8-7.8); NEUTROPHILS % (AUTO) 59 % (42-75); PLATELET COUNT 159 10^3/uL (130-400); RED BLOOD COUNT 3.97 10^6/uL (4.35-5.85); RED CELL DISTRIBUTION WIDTH 12.4 % (10.0-14.5); WHITE BLOOD COUNT 5.8 10^3/uL (4.3-11.0)
[2017-11-25 11:05] LABS: ALANINE AMINOTRANSFERASE 17 U/L (0-55); ALKALINE PHOSPHATASE 100 U/L (40-136); BILIRUBIN,TOTAL 0.7 MG/DL (0.1-1.0); BUN/CREATININE RATIO 19; CALCIUM 9.2 MG/DL (8.5-10.1); CARBON DIOXIDE 27 MMOL/L (21-32); CHLORIDE 104 MMOL/L (98-107); CREATININE SERUM 0.73 MG/DL (0.60-1.30); GFR ESTIMATED > 60; GLUCOSE 96 MG/DL (70-105); POTASSIUM 4.1 MMOL/L (3.6-5.0); SODIUM 140 MMOL/L (135-145); TOTAL PROTEIN 7.2 GM/DL (6.4-8.2)
[2017-11-25] MEDS ORDERED: CYANOCOBALAMIN INJ 1000 MCG/ML (CANCER CENTER) ONE (11:48)
== END 2017-12-07 | disposition home or self-care (01) ==
LOC: ONC 10:27
PROVIDERS: ATTEND Internal Medicine Hematology & Oncology
DX: Z51.11 Encounter for antineoplastic chemotherapy (principal); C34.11 Malignant neoplasm of upper lobe, right bronchus or lung; C77.1 Secondary and unspecified malignant neoplasm of intrathoracic lymph nodes; D53.9 Nutritional anemia, unspecified; D61.810 Antineoplastic chemotherapy induced pancytopenia; I10 Essential (primary) hypertension; J44.9 Chronic obstructive pulmonary disease, unspecified; F17.210 Nicotine dependence, cigarettes, uncomplicated; K58.0 Irritable bowel syndrome with diarrhea; M51.36 Other intervertebral disc degeneration, lumbar region; M47.816 Spondylosis without myelopathy or radiculopathy, lumbar region; I25.10 Atherosclerotic heart disease of native coronary artery without angina pectoris; R53.83 Other fatigue; E66.9 Obesity, unspecified; Z68.30 Body mass index [BMI] 30.0-30.9, adult; Z95.1 Presence of aortocoronary bypass graft; Z79.899 Other long term (current) drug therapy; T45.1X5A Adverse effect of antineoplastic and immunosuppressive drugs, initial encounter
CPT/HCPCS: 36591; 77385; 80053; 85025; 96372; 96413; 99213

== ENCOUNTER → 2017-12-10 | Outpatient (CLI) | payer BC ==
[~2017-12-10] MED LIST changes: +BARIUM SUSPENSION 2.1% (VANILLA SILQ) 450 ML PO ONE; -CYANOCOBALAMIN INJ 1000 MCG/ML (CANCER CENTER) ONE; -DURVALUMAB IV SCH; +GADOBUTROL 10 MMOL/10 ML (GADAVIST) VIAL IV ONE; +IOHEXOL 350 MG/ML 100 ML (OMNIPAQUE 350) VIAL IV ONE; +NS 250 ML (IVPB) BAG IV ONE; -NS IV 500 ML (CANCER CENTER) IV SCH; -NS IV SCH
--- NOTE | 2017-12-10 09:52 | Diagnostic Imaging Report ---
EXAMINATION: CT NECK/CHEST/ABDOMEN. TECHNIQUE: A post contrast CT of the neck, chest, and abdomen was performed after intravenous contrast administration. Sagittal and coronal reformats were created and submitted for interpretation. INDICATION: Lung cancer. Surveillance imaging. COMPARISON: CT chest, abdomen, and pelvis of 05/04/2017. FINDINGS: CT NECK: There are multiple bilateral subcentimeter cervical lymph nodes at the level I, 2, and 3 positions. In the posterior triangle on the left, there are non-masslike low-attenuation spiculations which may be venolymphatic structures. These do not have the appearance of a lymph node. The thyroid is normal where seen. The salivary glands are symmetric. The orbits are normal. The paranasal sinuses are clear where seen. No space-occupying mass or hydrocephalus within the visualized aspects of the brain. The pharynx and larynx are grossly normal. No concerning focal osseous lesion within the neck. IMPRESSION: No evidence of metastatic lymphadenopathy in the neck. CT CHEST: The spiculated right upper lobe pulmonary nodule remains stable in size measuring approximately 9 mm. There are new surrounding interstitial and airspace opacities, likely due to radiation change. Groundglass attenuation in the dependent aspect of the right lower lobe is new as well. No new pulmonary mass consolidation. The 3 mm left lower lobe pulmonary nodule is stable. No pleural effusion or pneumothorax. No supraclavicular or axillary lymphadenopathy. The lower right paratracheal lymph node has slightly decreased in size now measuring 0.9 cm (previously 1.2 cm). No new mediastinal, hilar, or juxtaphrenic lymphadenopathy. No pericardial effusion. Stable changes of CABG. No central pulmonary emboli. IMPRESSION: 1. Stable size of the right upper lobe nodule, compatible with primary lung cancer. New surrounding interstitial and airspace opacities may relate to post treatment change. 2. Decrease in size of borderline enlarged mediastinal lymph nodes. No new intrathoracic lymphadenopathy. CT ABDOMEN: No change in the abdomen to suggest metastases. Cholecystectomy. No pathologic biliary duct dilatation. No pancreatic mass. Moderate thickening of the bilateral adrenal glands which maintain normal configuration is unchanged. No abdominal or pelvic lymphadenopathy. Multiple exophytic left renal cysts are unchanged. The infrarenal abdominal aortic aneurysm is unchanged measuring approximately 3.2 cm in maximal dimension. Fluid-filled small bowel loops are nondilated. IMPRESSION: 1. No change in the abdomen to indicate metastatic disease. 2. Unchanged infrarenal abdominal aortic aneurysm. Dictated by: Dictated on workstation # [id number]
--- NOTE | 2017-12-10 10:20 | Diagnostic Imaging Report ---
PROCEDURE: MR imaging of the brain with and without contrast. TECHNIQUE: Multiplanar, multisequence MR imaging of the brain was performed with and without contrast. INDICATION: Lung carcinoma. Patient reports having balance problems for several months. COMPARISON: Comparison is made with prior MRI of the brain from 07/29/2017. FINDINGS: Adverse appearance to the brain is noted when compared with prior MRI from 07/29/2017. The patient has developed numerous ring-enhancing lesions in the supratentorial and infratentorial brain. Ring-enhancing lesions bilateral frontal lobes are noted, measuring approximately 10 mm on the left and 12 mm on the right. A central pontine ring-enhancing lesion measures 8 mm. There are bilateral cerebellar hemisphere enhancing lesions, less than 1 cm in size. There is a ring-enhancing lesion in the right temporal lobe. There are several enhancing lesions in the right occipital lobe, largest 14 mm in size. There is some perilesional vasogenic edema associated with the lesions. The ventricular size is stable. There is no midline shift. No significant mass effect is seen. No acute intra-axial or extra-axial hemorrhage is detected. No diffusion restriction is seen. The normal expected flow-voids in carotid siphons are seen. Corpus callosum is unremarkable. Sella and parasellar structures are unremarkable. IMPRESSION: Interval development of multiple ring-enhancing lesions within the supra-tentorial and infratentorial brain as well as the mid lobo consistent with the development of intracranial metastatic disease. No mass effect or intracranial hemorrhage is detected. Dr. Dougherty has been notified of these results. Dictated by: Dictated on workstation # [id number]
== END ==
LOC: RAD 08:21
PROVIDERS: ATTEND Internal Medicine Hematology & Oncology
DX: C34.11 Malignant neoplasm of upper lobe, right bronchus or lung (principal); I71.4 Abdominal aortic aneurysm, without rupture; G93.9 Disorder of brain, unspecified
CPT/HCPCS: 70491; 70553; 71260; 74160

== ENCOUNTER 2018-01-04 14:00 | Outpatient (RCR) | payer BC ==
[2017-12-09 11:02] LABS: BASOPHILS % (AUTO) 0 % (0-10); EOSINOPHILS # (AUTO) 0.2 10^3/uL (0.0-0.3); EOSINOPHILS % (AUTO) 2 % (0-10); HEMATOCRIT 41 % (40-54); HEMOGLOBIN 14.2 G/DL (13.3-17.7); LYMPHOCYTES # (AUTO) 1.5 X 10^3 (1.0-4.0); LYMPHOCYTES % (AUTO) 24 % (12-44); MEAN CORPUSCULAR HEMOGLOBIN 34 PG (25-34); MEAN CORPUSCULAR HGB CONC 35 G/DL (32-36); MEAN CORPUSCULAR VOLUME 98 FL (80-99); MEAN PLATELET VOLUME 9.1 FL (7.4-10.4); MONOCYTES # (AUTO) 0.6 X 10^3 (0.0-1.0); MONOCYTES % (AUTO) 9 % (0-12); NEUTROPHILS % (AUTO) 64 % (42-75); PLATELET COUNT 166 10^3/uL (130-400); RED BLOOD COUNT 4.13 10^6/uL (4.35-5.85); RED CELL DISTRIBUTION WIDTH 12.5 % (10.0-14.5); WHITE BLOOD COUNT 6.2 10^3/uL (4.3-11.0)
[2017-12-09 11:20] LABS: ALANINE AMINOTRANSFERASE 12 U/L (0-55); ALBUMIN 3.9 GM/DL (3.2-4.5); ALKALINE PHOSPHATASE 107 U/L (40-136); BILIRUBIN,TOTAL 0.7 MG/DL (0.1-1.0); BUN/CREATININE RATIO 17; CALCIUM 9.2 MG/DL (8.5-10.1); CARBON DIOXIDE 30 MMOL/L (21-32); CHLORIDE 103 MMOL/L (98-107); CREATININE SERUM 0.75 MG/DL (0.60-1.30); GFR ESTIMATED > 60; GLUCOSE 95 MG/DL (70-105); POTASSIUM 4.1 MMOL/L (3.6-5.0); SODIUM 140 MMOL/L (135-145); TOTAL PROTEIN 7.1 GM/DL (6.4-8.2)
[2017-12-27 11:48] LABS: BASOPHILS % (AUTO) 0 % (0-10); EOSINOPHILS % (AUTO) 0 % (0-10); HEMATOCRIT 46 % (40-54); HEMOGLOBIN 16.2 G/DL (13.3-17.7); LYMPHOCYTES # (AUTO) 0.9 X 10^3 (1.0-4.0); LYMPHOCYTES % (AUTO) 5 % (12-44); MEAN CORPUSCULAR HEMOGLOBIN 35 PG (25-34); MEAN CORPUSCULAR HGB CONC 35 G/DL (32-36); MEAN CORPUSCULAR VOLUME 97 FL (80-99); MEAN PLATELET VOLUME 9.3 FL (7.4-10.4); MONOCYTES # (AUTO) 0.7 X 10^3 (0.0-1.0); MONOCYTES % (AUTO) 4 % (0-12); NEUTROPHILS % (AUTO) 90 % (42-75); PLATELET COUNT 142 10^3/uL (130-400); RED CELL DISTRIBUTION WIDTH 14.2 % (10.0-14.5); WHITE BLOOD COUNT 16.7 10^3/uL (4.3-11.0)
[2017-12-27 12:08] LABS: BILIRUBIN,URINE NEGATIVE (NEGATIVE); CLARITY,URINE SLIGHTLY CLOUDY; COLOR,URINE YELLOW; GLUCOSE, URINE (UA) NEGATIVE (NEGATIVE); KETONES,URINE NEGATIVE (NEGATIVE); LEUKOCYTE ESTERASE ,URINE 1+ (NEGATIVE); NITRITE,URINE POSITIVE (NEGATIVE); PH,URINE 6.5 (5-9); PROTEIN,URINE 1+ (NEGATIVE); UROBILINOGEN,URINE NORMAL (NORMAL)
[2017-12-27 12:11] LABS: ALANINE AMINOTRANSFERASE 39 U/L (0-55); ALKALINE PHOSPHATASE 92 U/L (40-136); BILIRUBIN,TOTAL 0.7 MG/DL (0.1-1.0); BUN/CREATININE RATIO 35; CALCIUM 9.2 MG/DL (8.5-10.1); CARBON DIOXIDE 29 MMOL/L (21-32); CHLORIDE 99 MMOL/L (98-107); CREATININE SERUM 0.72 MG/DL (0.60-1.30); GFR ESTIMATED > 60; GLUCOSE 111 MG/DL (70-105); POTASSIUM 4.9 MMOL/L (3.6-5.0); SODIUM 138 MMOL/L (135-145); TOTAL PROTEIN 6.8 GM/DL (6.4-8.2)
[2017-12-27 12:39] LABS: BACTERIA,URINE LARGE /HPF; RBC,URINE RARE /HPF; SQUAMOUS EPITHELIAL CELL,UR 0-2 /HPF
[~2018-01-04 14:00] MED LIST changes: -BARIUM SUSPENSION 2.1% (VANILLA SILQ) 450 ML PO ONE; +DURVALUMAB IV SCH; -GADOBUTROL 10 MMOL/10 ML (GADAVIST) VIAL IV ONE; -IOHEXOL 350 MG/ML 100 ML (OMNIPAQUE 350) VIAL IV ONE; -NS 250 ML (IVPB) BAG IV ONE; +NS IV 500 ML (CANCER CENTER) IV SCH; +NS IV SCH
[2018-01-04 14:45] LABS: BASOPHILS % (AUTO) 0 % (0-10); EOSINOPHILS # (AUTO) 0.1 10^3/uL (0.0-0.3); EOSINOPHILS % (AUTO) 1 % (0-10); HEMATOCRIT 45 % (40-54); HEMOGLOBIN 15.7 G/DL (13.3-17.7); LYMPHOCYTES # (AUTO) 1.3 X 10^3 (1.0-4.0); LYMPHOCYTES % (AUTO) 14 % (12-44); MEAN CORPUSCULAR HEMOGLOBIN 34 PG (25-34); MEAN CORPUSCULAR HGB CONC 35 G/DL (32-36); MEAN CORPUSCULAR VOLUME 97 FL (80-99); MEAN PLATELET VOLUME 10.1 FL (7.4-10.4); MONOCYTES # (AUTO) 0.5 X 10^3 (0.0-1.0); MONOCYTES % (AUTO) 5 % (0-12); NEUTROPHILS # (AUTO) 7.4 X 10^3 (1.8-7.8); NEUTROPHILS % (AUTO) 80 % (42-75); PLATELET COUNT 79 10^3/uL (130-400); RED BLOOD COUNT 4.66 10^6/uL (4.35-5.85); RED CELL DISTRIBUTION WIDTH 14.5 % (10.0-14.5); WHITE BLOOD COUNT 9.2 10^3/uL (4.3-11.0)
[2018-01-04 15:05] LABS: ALANINE AMINOTRANSFERASE 34 U/L (0-55); ALBUMIN 3.5 GM/DL (3.2-4.5); ALKALINE PHOSPHATASE 84 U/L (40-136); BILIRUBIN,TOTAL 0.9 MG/DL (0.1-1.0); BUN/CREATININE RATIO 38; CARBON DIOXIDE 27 MMOL/L (21-32); CHLORIDE 102 MMOL/L (98-107); GFR ESTIMATED > 60; GLUCOSE 111 MG/DL (70-105); POTASSIUM 4.3 MMOL/L (3.6-5.0); SODIUM 138 MMOL/L (135-145)
[2018-01-04 15:31] LABS: BILIRUBIN,URINE NEGATIVE (NEGATIVE); CLARITY,URINE CLEAR; COLOR,URINE YELLOW; GLUCOSE, URINE (UA) NEGATIVE (NEGATIVE); KETONES,URINE NEGATIVE (NEGATIVE); LEUKOCYTE ESTERASE ,URINE 1+ (NEGATIVE); NITRITE,URINE NEGATIVE (NEGATIVE); PH,URINE 6 (5-9); PROTEIN,URINE NEGATIVE (NEGATIVE); UROBILINOGEN,URINE NORMAL (NORMAL)
[2018-01-04 15:39] LABS: RBC,URINE RARE /HPF; SQUAMOUS EPITHELIAL CELL,UR 0-2 /HPF; WBC,URINE 0-2 /HPF
== END 2018-03-09 | disposition home or self-care (01) ==
LOC: ONC 14:00
PROVIDERS: ATTEND Internal Medicine Hematology & Oncology
DX: Z51.11 Encounter for antineoplastic chemotherapy (principal); Z51.0 Encounter for antineoplastic radiation therapy; C34.11 Malignant neoplasm of upper lobe, right bronchus or lung; C77.1 Secondary and unspecified malignant neoplasm of intrathoracic lymph nodes; I10 Essential (primary) hypertension; J44.9 Chronic obstructive pulmonary disease, unspecified; F17.210 Nicotine dependence, cigarettes, uncomplicated; K58.0 Irritable bowel syndrome with diarrhea; M51.36 Other intervertebral disc degeneration, lumbar region; M47.816 Spondylosis without myelopathy or radiculopathy, lumbar region; I25.10 Atherosclerotic heart disease of native coronary artery without angina pectoris; R53.83 Other fatigue; E66.9 Obesity, unspecified; Z68.30 Body mass index [BMI] 30.0-30.9, adult; Z95.1 Presence of aortocoronary bypass graft; Z79.899 Other long term (current) drug therapy
CPT/HCPCS: 36415; 36591; 77290; 77295; 77300; 77334; 77336; 77417; 77470; 80053; 81000; 85025; 87077; 87088; 87186; 96413; 99213; 99214